=== PATIENT | female | born 1945 | race Caucasian/White ===

== ENCOUNTER 2016-05-13 11:15 | Inpatient (IN) | payer MEDICARE ==
[~2016-05-13] VITALS: Ht 162.6 cm; Wt 45.4 kg
[~2016-05-13 11:15] MED LIST: ASPI-605 PO; LEVO100T9 PO; OXYC-128 PO; PRAV40TA3 PO
[2016-05-13 12:00] VITALS: BP 105/60
[2016-05-13 12:02] VITALS: BP 105/60
[2016-05-13] MEDS ORDERED: MAG HYDROX/AL HYDROX/SIMETH 30 ML UDC PO PRN (13:30)
[2016-05-13] MEDS ORDERED: HYDROCODONE/APAP 5/325MG 1 EACH TABLET PO PRN (13:30)
[2016-05-13] MEDS ORDERED: ONDANSETRON HCL/PF 4 MG/2 ML VIAL IVP PRN (13:30)
[2016-05-13] MEDS ORDERED: MAGNESIUM HYDROXIDE 30 ML UDC PO PRN (13:30)
[2016-05-13] MEDS ORDERED: ZOLPIDEM TARTRATE 5 MG TABLET PO PRN (13:30)
[2016-05-13] MEDS ORDERED: Z GUARD REMEDY 2 OZ OINT TP PRN (13:30)
[2016-05-13] MEDS ORDERED: ACETAMINOPHEN 325 MG TABLET PO PRN (13:30)
[2016-05-13] MEDS ORDERED: IV SET PRIMARY PUMP SET 1 EA INFUS.SET MC ONE (14:02)
[2016-05-13 14:04] LABS: BASOPHILS % (AUTO) 0.4 % (0.0-2.0); DIFF TOTAL % 100 %; EOSINOPHILS % (AUTO) 0.5 % (0.0-6.0); HEMATOCRIT 31 % (33-45); HEMOGLOBIN 10.2 g/dL (11.5-14.8); LYMPHOCYTES # (AUTO) 1.7 /CMM (0.8-4.8); MEAN CORPUSCULAR HEMOGLOBIN 29 PG (26.0-33.0); MEAN CORPUSCULAR HGB CONC 33 g/dl (31.0-36.0); MEAN CORPUSCULAR VOLUME 87 fL (82-100); MONOCYTES % (AUTO) 11.1 % (2.0-12.0); NEUTROPHILS # (AUTO) 6.3 /CMM (1.8-8.9); PLATELET COUNT (AUTO) 556 /CMM (150-450); RED BLOOD CELL COUNT(AUTO) 3.55 MIL/uL (4.0-5.2); WHITE BLOOD COUNT (AUTO) 9.1 K/uL (4.3-11.0)
[2016-05-13] MEDS: IV NS 0.9% 1,000 ML IV PRN (14:08)
[2016-05-13 14:13] LABS: CALCIUM, SERUM 8.1 mg/dL (8.5-10.1); CREATININE 0.7 mg/dL (0.6-1.3); POTASSIUM 3.9 mmol/L (3.5-5.1)
[2016-05-13 16:00] VITALS: BP 115/64
[2016-05-13] MEDS: ACETAMINOPHEN 325 MG TABLET PO PRN (18:21)
[2016-05-13 20:00] VITALS: BP 122/73
[2016-05-13] MEDS ORDERED: HYDROCODONE/APAP 5/325MG 1 EACH TABLET ONE (22:08)
[2016-05-13] MEDS ORDERED: TRAZODONE 50 MG TABLET ONE (22:09)
[2016-05-13] MEDS ORDERED: QUETIAPINE FUMARATE 100 MG TABLET ONE (22:09)
[2016-05-13] MEDS: HYDROCODONE/APAP 5/325MG 1 EACH TABLET PO PRN (22:22)
[2016-05-13] MEDS: ATORVASTATIN 10 MG TABLET PO SCH (22:22)
[2016-05-13] MEDS: TRAZODONE 50 MG TABLET PO SCH (22:23)
[2016-05-13] MEDS: QUETIAPINE FUMARATE 100 MG TABLET PO SCH (22:23)
[2016-05-13] MEDS: Magnesium 1GM/D5W 100ML PREMIX 100 ML IV SCH ×2 (22:30→23:30)
[2016-05-13 23:44] LABS: ADD UA MICROSCOPIC NO; KETONES,URINE NEGATIVE (NEGATIVE); LEUKOCYTE ESTERASE ,URINE NEGATIVE (NEGATIVE)
[2016-05-14] VITALS: BP 124/81
[2016-05-14] MEDS ORDERED: Magnesium 1GM/D5W 100ML PREMIX 300 ML IV ONE (00:29)
[2016-05-14] MEDS ORDERED: SECONDARY IV SET 1 EA INFUS.SET MC ONE (00:33)
[2016-05-14] MEDS: Magnesium 1GM/D5W 100ML PREMIX 100 ML IV SCH ×2 (00:39→02:00)
[2016-05-14 04:00] VITALS: BP 131/71
[2016-05-14] MEDS: IV NS 0.9% 1,000 ML IV PRN (06:12)
[2016-05-14 06:54] VITALS: BP 134/74
[2016-05-14 07:34] LABS: BASOPHILS % (AUTO) 0.3 % (0.0-2.0); DIFF TOTAL % 100 %; EOSINOPHILS # (AUTO) 0.1 /CMM (0.0-0.7); EOSINOPHILS % (AUTO) 1.5 % (0.0-6.0); HEMATOCRIT 34 % (33-45); HEMOGLOBIN 11.2 g/dL (11.5-14.8); LYMPHOCYTES # (AUTO) 1.2 /CMM (0.8-4.8); LYMPHOCYTES % (AUTO) 18.6 % (20.0-44.0); MEAN CORPUSCULAR HEMOGLOBIN 29 PG (26.0-33.0); MEAN CORPUSCULAR HGB CONC 33 g/dl (31.0-36.0); MEAN CORPUSCULAR VOLUME 87 fL (82-100); MONOCYTES # (AUTO) 0.7 /CMM (0.1-1.30); MONOCYTES % (AUTO) 11.8 % (2.0-12.0); NEUTROPHILS # (AUTO) 4.2 /CMM (1.8-8.9); NEUTROPHILS % (AUTO) 67.8 % (43.0-81.0); PLATELET COUNT (AUTO) 561 /CMM (150-450); RED BLOOD CELL COUNT(AUTO) 3.91 MIL/uL (4.0-5.2); WHITE BLOOD COUNT (AUTO) 6.2 K/uL (4.3-11.0)
[2016-05-14 07:48] LABS: CALCIUM, SERUM 8.3 mg/dL (8.5-10.1); CREATININE 0.6 mg/dL (0.6-1.3); PHOSPHORUS 3.1 mg/dL (2.5-4.9); POTASSIUM 3.8 mmol/L (3.5-5.1)
[2016-05-14 07:56] LABS: THYROID STIMULATING HORMONE 4.738 uIU/mL (0.358-3.74)
[2016-05-14 07:59] LABS: THYROID STIMULATING HORMONE 4.607 uIU/mL (0.358-3.74)
[2016-05-14] MEDS: PANTOPRAZOLE 40 MG TABLET.DR PO SCH (08:33)
[2016-05-14] MEDS: LEVOTHYROXINE SODIUM 100 MCG TABLET PO SCH (08:33)
[2016-05-14] MEDS ORDERED: ASPIRIN EC 81 MG TABLET.DR PO SCH (09:00)
[2016-05-14] MEDS: HYDROCODONE/APAP 5/325MG 1 EACH TABLET PO PRN ×2 (09:08→13:54)
[2016-05-14] MEDS ORDERED: IV NS 0.9% 500 ML IV ONE (15:00)
[2016-05-14] MEDS ORDERED: IV SET PRIMARY PUMP SET 1 EA INFUS.SET MC ONE (15:01)
[2016-05-14] MEDS: AMOXICILLIN TRIHYDRATE 250 MG CAPSULE PO SCH (15:10)
[2016-05-14] MEDS: VENLAFAXINE XR 75 MG CAP.SR.24H PO SCH (15:10)
[2016-05-14] MEDS: oxyCODONE/APAP (5/325 MG) 1 UDTAB TABLET PO PRN ×2 (15:33→20:43)
[2016-05-14 16:00] VITALS: BP 114/70
[2016-05-14 20:00] VITALS: BP 125/67
[2016-05-14] MEDS: MUPIROCIN OINT 2% 22 GM TUBE SCH (21:00)
[2016-05-14] MEDS: TRAZODONE 50 MG TABLET PO SCH (22:33)
[2016-05-14] MEDS: ATORVASTATIN 10 MG TABLET PO SCH (22:33)
[2016-05-14] MEDS: QUETIAPINE FUMARATE 100 MG TABLET PO SCH (22:33)
[2016-05-15] MEDS: AMOXICILLIN TRIHYDRATE 250 MG CAPSULE PO SCH ×2 (03:36→14:41)
[2016-05-15] MEDS: IV NS 0.9% 1,000 ML IV PRN ×2 (06:46→15:28)
[2016-05-15] MEDS: oxyCODONE/APAP (5/325 MG) 1 UDTAB TABLET PO PRN ×5 (06:48→22:41)
[2016-05-15] MEDS: PANTOPRAZOLE 40 MG TABLET.DR PO SCH ×2 (06:48→16:55)
[2016-05-15] MEDS: LEVOTHYROXINE SODIUM 100 MCG TABLET PO SCH (06:49)
[2016-05-15 07:10] VITALS: BP_SYST 118; BP_SYST 128; BP_SYST 139; BP_DIAS 72; BP_DIAS 75
[2016-05-15 07:15] VITALS: BP 128/75
[2016-05-15 08:00] VITALS: BP 128/78
[2016-05-15] MEDS: VENLAFAXINE XR 75 MG CAP.SR.24H PO SCH (08:45)
[2016-05-15] MEDS: MUPIROCIN OINT 2% 22 GM TUBE SCH ×2 (10:23→21:39)
[2016-05-15] MEDS: SUCRALFATE 1 G TABLET PO SCH ×3 (12:14→21:40)
[2016-05-15] MEDS: CYANOCOBALAMIN 500 MCG TABLET PO SCH (12:14)
[2016-05-15 16:00] VITALS: BP 144/87
[2016-05-15 20:08] VITALS: BP 128/69
[2016-05-15] MEDS: ATORVASTATIN 10 MG TABLET PO SCH (21:40)
[2016-05-15] MEDS: QUETIAPINE FUMARATE 100 MG TABLET PO SCH (21:40)
[2016-05-15] MEDS: TRAZODONE 50 MG TABLET PO SCH (21:40)
[2016-05-15 22:22] VITALS: BP 125/69
[2016-05-16] MEDS: AMOXICILLIN TRIHYDRATE 250 MG CAPSULE PO SCH ×2 (03:13→14:03)
[2016-05-16] MEDS: IV NS 0.9% 1,000 ML IV PRN ×2 (06:52→16:14)
[2016-05-16] MEDS: oxyCODONE/APAP (5/325 MG) 1 UDTAB TABLET PO PRN ×4 (07:14→20:16)
[2016-05-16] MEDS: LEVOTHYROXINE SODIUM 100 MCG TABLET PO SCH (07:14)
[2016-05-16] MEDS: SUCRALFATE 1 G TABLET PO SCH ×4 (07:14→22:06)
[2016-05-16 08:00] VITALS: BP 103/72
[2016-05-16 08:33] LABS: IRON, SERUM 34 ug/dl (50-175); PERCENT SATURATION 9 % (14-33); TOTAL IRON BINDING CAPACITY 397 ug/dl (250-450)
[2016-05-16] MEDS: MUPIROCIN OINT 2% 22 GM TUBE SCH ×2 (09:32→22:05)
[2016-05-16] MEDS: CYANOCOBALAMIN 500 MCG TABLET PO SCH (09:32)
[2016-05-16] MEDS: PANTOPRAZOLE 40 MG TABLET.DR PO SCH ×2 (09:32→16:14)
[2016-05-16] MEDS: VENLAFAXINE XR 75 MG CAP.SR.24H PO SCH (09:32)
[2016-05-16] MEDS ORDERED: SECONDARY IV SET 1 EA INFUS.SET MC ONE (13:56)
[2016-05-16] MEDS ORDERED: SOD FERRIC GLUC 125 MG in IV NS 0.9% 100 ML IV SCH (14:00)
[2016-05-16 15:15] VITALS: BP 117/81
[2016-05-16] MEDS ORDERED: IV SET PRIMARY PUMP SET 1 EA INFUS.SET MC ONE (15:56)
[2016-05-16 16:00] VITALS: BP 112/81
[2016-05-16 20:00] VITALS: BP 124/79
[2016-05-16] MEDS: ATORVASTATIN 10 MG TABLET PO SCH (22:05)
[2016-05-16] MEDS: TRAZODONE 50 MG TABLET PO SCH (22:05)
[2016-05-16] MEDS: QUETIAPINE FUMARATE 100 MG TABLET PO SCH (22:05)
[2016-05-16] MEDS: ACETAMINOPHEN 325 MG TABLET PO PRN (22:23)
[2016-05-17] MEDS: oxyCODONE/APAP (5/325 MG) 1 UDTAB TABLET PO PRN ×3 (00:18→12:12)
[2016-05-17] MEDS: IV NS 0.9% 1,000 ML IV PRN (00:19)
[2016-05-17] MEDS: AMOXICILLIN TRIHYDRATE 250 MG CAPSULE PO SCH (03:26)
[2016-05-17 07:28] LABS: BASOPHILS % (AUTO) 0.6 % (0.0-2.0); DIFF TOTAL % 100 %; EOSINOPHILS # (AUTO) 0.1 /CMM (0.0-0.7); EOSINOPHILS % (AUTO) 1.5 % (0.0-6.0); HEMATOCRIT 34 % (33-45); HEMOGLOBIN 11.2 g/dL (11.5-14.8); LYMPHOCYTES # (AUTO) 1.7 /CMM (0.8-4.8); LYMPHOCYTES % (AUTO) 29.3 % (20.0-44.0); MEAN CORPUSCULAR HEMOGLOBIN 29 PG (26.0-33.0); MEAN CORPUSCULAR HGB CONC 33 g/dl (31.0-36.0); MEAN CORPUSCULAR VOLUME 88 fL (82-100); MONOCYTES # (AUTO) 0.6 /CMM (0.1-1.30); MONOCYTES % (AUTO) 10.5 % (2.0-12.0); NEUTROPHILS # (AUTO) 3.4 /CMM (1.8-8.9); NEUTROPHILS % (AUTO) 58.1 % (43.0-81.0); PLATELET COUNT (AUTO) 518 /CMM (150-450); WHITE BLOOD COUNT (AUTO) 5.8 K/uL (4.3-11.0)
[2016-05-17 08:00] VITALS: BP 91/64
[2016-05-17] MEDS: LEVOTHYROXINE SODIUM 100 MCG TABLET PO SCH (08:30)
[2016-05-17] MEDS: CYANOCOBALAMIN 500 MCG TABLET PO SCH (08:31)
[2016-05-17] MEDS: SUCRALFATE 1 G TABLET PO SCH ×2 (08:31→11:26)
[2016-05-17] MEDS: PANTOPRAZOLE 40 MG TABLET.DR PO SCH (08:31)
[2016-05-17] MEDS: VENLAFAXINE XR 75 MG CAP.SR.24H PO SCH (08:31)
[2016-05-17] MEDS: MUPIROCIN OINT 2% 22 GM TUBE SCH (09:39)
== END 2016-05-17 15:45 | disposition home or self-care (01) | DRG 74 ==
LOC: TELE1 11:47 → TELE 12:16 → MED 05-14 10:05
PROVIDERS: ADMIT Student in an Organized Health Care Education/Training Program; ATTEND Student in an Organized Health Care Education/Training Program
DX: G90.8 Other disorders of autonomic nervous system (principal); E44.1 Mild protein-calorie malnutrition; Z68.1 Body mass index [BMI] 19.9 or less, adult; H53.2 Diplopia; K29.70 Gastritis, unspecified, without bleeding; F32.9 Major depressive disorder, single episode, unspecified; E78.5 Hyperlipidemia, unspecified; D64.9 Anemia, unspecified; E03.9 Hypothyroidism, unspecified; Z86.73 Personal history of transient ischemic attack (TIA), and cerebral infarction without residual deficits; Z87.11 Personal history of peptic ulcer disease; K57.30 Diverticulosis of large intestine without perforation or abscess without bleeding; K04.7 Periapical abscess without sinus; Z90.49 Acquired absence of other specified parts of digestive tract; K25.9 Gastric ulcer, unspecified as acute or chronic, without hemorrhage or perforation
CPT/HCPCS: 36415; 80048-TC; 80061-TC; 81000-TC; 82272-TC; 82728-TC; 82746; 83540-TC; 83735-TC; 84100-TC; 84439-TC; 84443-TC; 84484-TC; 85025-TC; 85045-TC; 87081-TC; 92521; 97001-TC; 97003-TC; J2405; J2916; J3475; J7030; J7040

== ENCOUNTER 2017-05-06 22:56 | Inpatient (IN) | payer MEDICARE ==
[~2017-05-06] VITALS: Ht 162.6 cm; Wt 49.0 kg
--- NOTE | 2017-05-07 01:40 | NUR ---
TO BED 6 A 71 YO FEMALE PATIENT BIBSELF AND SAID, "I WANT SOMEWHERE TO BE; JUST LEFT THE USP; WANNA HURT MYSELF BUT DONT KNOW HOW." PATIENT IS AAOX3, VSS. NAD NOTED. SKIN WARM AND DRY. AMBULATORY WITH STEADY GAIT. SAFETY MEASURES OBSERVED. WILL CLOSELY MONITOR.
[2017-05-07 01:42] LABS: BASOPHILS % (AUTO) 0.4 % (0.0-2.0); EOSINOPHILS # (AUTO) 0.1 /CMM (0.0-0.7); EOSINOPHILS % (AUTO) 0.8 % (0.0-6.0); HEMATOCRIT 35 % (33-45); HEMOGLOBIN 11.8 g/dL (11.5-14.8); LYMPHOCYTES # (AUTO) 2.4 /CMM (0.8-4.8); LYMPHOCYTES % (AUTO) 26.4 % (20.0-44.0); MEAN CORPUSCULAR HEMOGLOBIN 33 PG (26.0-33.0); MEAN CORPUSCULAR HGB CONC 34 g/dl (31.0-36.0); MEAN CORPUSCULAR VOLUME 96 fL (82-100); MONOCYTES # (AUTO) 0.9 /CMM (0.1-1.30); MONOCYTES % (AUTO) 9.5 % (2.0-12.0); NEUTROPHILS # (AUTO) 5.7 /CMM (1.8-8.9); NEUTROPHILS % (AUTO) 62.9 % (43.0-81.0); PLATELET COUNT (AUTO) 410 /CMM (150-450); RDW COEFFICIENT OF VARIATION 15.7 (11.5-15.0); RED BLOOD CELL COUNT(AUTO) 3.62 MIL/uL (4.0-5.2)
[2017-05-07 01:43] LABS: APPEARANCE,URINE CLEAR (CLEAR); BILIRUBIN,URINE NEGATIVE (NEGATIVE); BLOOD, URINE TRACE-INTA Ery/uL (NEGATIVE); COLOR,URINE YELLOW (YELLOW); KETONES,URINE NEGATIVE (NEGATIVE); LEUKOCYTE ESTERASE ,URINE 3+ (NEGATIVE); NITRITE, URINE NEGATIVE (NEGATIVE); PROTEIN,URINE NEGATIVE (NEGATIVE); UGLUCOSE NEGATIVE (NEGATIVE); UROBILINOGEN,URINE 0.2 EU/dL (0.2)
--- NOTE | 2017-05-07 01:47 | NUR ---
dr dover at bedside talking to the patient.
[2017-05-07 01:48] LABS: BACTERIA,URINE Moderate /HPF (None Seen); SQUAMOUS EPITHELIAL CELL,UR Few /HPF (None Seen)
[2017-05-07 01:51] LABS: CALCIUM, SERUM 8.9 mg/dL (8.5-10.1); CARBON DIOXIDE 27 mmol/L (21-32); CHLORIDE 110 mmol/L (98-107); CREATININE 0.7 mg/dL (0.6-1.3); GLUCOSE 101 mg/dL (74-106); POTASSIUM 3.3 mmol/L (3.5-5.1); SODIUM SERUM 148 mmol/L (136-145); UREA NITROGEN, BLOOD 10 mg/dL (7-18)
[2017-05-07 01:57] LABS: ACETAMINOPHEN 3 ug/ml (10-30); ALANINE AMINOTRANSFERASE 17 U/L (12-78); ALBUMIN 3.3 g/dL (3.4-5.0); ALCOHOL, BLOOD < 3 mg/dL (0-0); ALKALINE PHOSPHATASE 130 U/L (46-116); ASPARTATE AMINOTRANSFERASE 13 U/L (15-37); BILIRUBIN,DIRECT 0.1 mg/dL (0.0-0.2); BILIRUBIN,TOTAL 0.3 mg/dL (0.2-1.0); SALICYLATE 4.6 mg/dL (2.8-20.0); TOTAL PROTEIN, SERUM 6.8 g/dL (6.4-8.2)
[2017-05-07] MEDS ORDERED: POTASSIUM CHLORIDE 20 MEQ TAB.PRT.SR PO ONE ×2 (03:00→03:04)
[2017-05-07] MEDS ORDERED: NITROFURANTOIN/NITROFURAN MAC 100 MG CAPSULE PO ONE (03:00)
[2017-05-07] MEDS ORDERED: NITROFURANTOIN/NITROFURAN MAC 100 MG CAPSULE ONE (03:04)
--- NOTE | 2017-05-07 03:10 | NUR ---
MEDICATED PATIENT ORDERED BY DR MAN.
[2017-05-07] MEDS ORDERED: TRAZ-147 PO (03:40)
[2017-05-07] MEDS ORDERED: LEVO125T8 PO (03:40)
[2017-05-07] MEDS ORDERED: VENL150C2 PO (03:40)
[2017-05-07] MEDS ORDERED: QUET100T PO (03:40)
[2017-05-07] MEDS ORDERED: OXYC-133 PO (03:40)
[2017-05-07] MEDS ORDERED: ONDA4TAB11 PO (03:57)
[2017-05-07] MEDS ORDERED: MAGNESIUM HYDROXIDE 30 ML UDC PO PRN (04:00)
[2017-05-07] MEDS ORDERED: MAG HYDROX/AL HYDROX/SIMETH 30 ML UDC PO PRN (04:00)
[2017-05-07 04:22] VITALS: BP 105/67
--- NOTE | 2017-05-07 04:57 | NUR ---
ADMISSION NOTES ADMITTED THIS 71 Y/O FEMALE PATIENT ADMIT FROM [facility] ER/ , PT. ADMITTED VOLUNTARY STATUS FOR DEPRESSION ,SI, PT. STATUS I FEEL DEPRESSED AND I HAVE SUCIDIAL THOUGHTS BUT NOT AT THIS TIME AND I DON'T HAVE PLAN , UPON FACE TO FACE ASSESSMENT PATIENT IS A&O X3 DEPRESSED FLAT AFFECT, EASILY AGITAED AND ANXIOUS PRE OCCUPIED WITH HIS OWN THOUGHTS , PT. IS POOR HISTORIAN, POOR INSIGHT ,POOR JUDGEMENT , POOR HYGINE V/S WNL, NO ACUTE DISTRESS NOTED, HX OF , DEPRESSION ,PTSD, MUSCLE WEAKNESS CHRONIC BACK PAIN , HYPOTHYRODISM ,DYSLIPIDEMIA, MD AWARE AND NOTIFIED OF THE ADMISSION, SKIN ASSESSMENT DONE . PICTURE TAKEN AND PLACED IN THE CHART, ENCOURAGED PT. VERBALIZED ANY FEELING CONCERN TO STAFF, ORIENT TO UNIT POLICY, WILL CONTINUE TO MONITOR FOR Q15 SAFETY AND BEHAVIOR.
--- NOTE | 2017-05-07 05:10 | NUR ---
GPS RN NOTES NOTIFIED DR. MCGOWAN REGARDING NEW ADMISSION MED RECON , STATUS I WILL DO IT.
[2017-05-07] MEDS ORDERED: Z GUARD REMEDY 2 OZ OINT TP PRN (05:30)
--- NOTE | 2017-05-07 06:27 | NUR ---
DR. HONG MADE AWARE OF THE ADMISSION AND GAVE ORDERS.
[2017-05-07 08:00] VITALS: BP 110/69
[2017-05-07] MEDS: Z GUARD REMEDY 2 OZ OINT TP SCH (10:39)
[2017-05-07] MEDS: clonazePAM 0.5 MG TABLET PO PRN ×2 (12:37→16:59)
--- NOTE | 2017-05-07 12:38 | NUR ---
RN-CO: Klonopin 0.5 given for anxiety.
--- NOTE | 2017-05-07 13:14 | NUR ---
RN-CO: Notified Billy Cm NP to reconcile home medications. Awaiting to call back.
--- NOTE | 2017-05-07 14:35 | NUR ---
RN-CO: Clarified with Dr Doherty if it's ok to give Restoril (pt has allergy to red dye). ok'd it.
[2017-05-07] MEDS ORDERED: TEMAZEPAM 7.5 MG CAPSULE PO PRN (15:00)
[2017-05-07 16:00] VITALS: BP 125/64
[2017-05-07] MEDS: VENLAFAXINE XR 75 MG CAP.SR.24H PO SCH (16:19)
[2017-05-07] MEDS: ACETAMINOPHEN 325 MG TABLET PO PRN (16:38)
--- NOTE | 2017-05-07 17:00 | NUR ---
rn-co: patient was given klonopin 0.5 mg po patient stated " I think I will have a nervous breakdown now."
[2017-05-07] MEDS: oxyCODONE/APAP (5/325 MG) 1 UDTAB TABLET PO PRN (18:28)
[2017-05-07 20:00] VITALS: BP 116/56
[2017-05-07] MEDS: CEPHALEXIN MONOHYDRATE 500 MG CAPSULE PO SCH (21:00)
[2017-05-07] MEDS: QUETIAPINE FUMARATE 100 MG TABLET PO SCH (22:18)
[2017-05-07] MEDS: TRAZODONE 50 MG TABLET PO SCH (22:19)
--- NOTE | 2017-05-08 00:10 | NUR ---
PATIENT C/O INABILITY TO SLEEP,RESTORIL 7.5MG.PO GIVEN ORDERED WITH HELP.
[2017-05-08 07:20] LABS: CHOLESTEROL 157 mg/dL (<200); HDL CHOLESTEROL 58 mg/dL (40-60); LDL 83 mg/dL (0-99); TRIGLYCERIDES 96 mg/dL (30-150)
[2017-05-08 07:22] LABS: ALANINE AMINOTRANSFERASE 12 U/L (12-78); ALBUMIN 2.6 g/dL (3.4-5.0); ALKALINE PHOSPHATASE 83 U/L (46-116); ASPARTATE AMINOTRANSFERASE 13 U/L (15-37); BILIRUBIN,TOTAL 0.3 mg/dL (0.2-1.0); CALCIUM, SERUM 8.4 mg/dL (8.5-10.1); CARBON DIOXIDE 28 mmol/L (21-32); CHLORIDE 108 mmol/L (98-107); CREATININE 0.5 mg/dL (0.6-1.3); GLUCOSE 88 mg/dL (74-106); POTASSIUM 3.7 mmol/L (3.5-5.1); SODIUM SERUM 142 mmol/L (136-145); TOTAL PROTEIN, SERUM 5.7 g/dL (6.4-8.2); UREA NITROGEN, BLOOD 9 mg/dL (7-18)
[2017-05-08 08:23] VITALS: BP 128/76
[2017-05-08] MEDS: CEPHALEXIN MONOHYDRATE 500 MG CAPSULE PO SCH ×2 (09:12→21:44)
[2017-05-08] MEDS: LEVOTHYROXINE SODIUM 125 MCG TABLET PO SCH (09:12)
[2017-05-08] MEDS: ATORVASTATIN 10 MG TABLET PO SCH (09:12)
[2017-05-08] MEDS: VENLAFAXINE XR 75 MG CAP.SR.24H PO SCH (09:12)
[2017-05-08] MEDS: oxyCODONE/APAP (5/325 MG) 1 UDTAB TABLET PO PRN ×3 (09:20→21:51)
[2017-05-08] MEDS: Z GUARD REMEDY 2 OZ OINT TP SCH (09:22)
--- NOTE | 2017-05-08 13:38 | NUR ---
Initial Discharge Plan: Pt reports being homeless. Pt reports having lost her housing in [place] on 05/04/17. Pt reports it being "illegal" housing. Pts main priority is to find housing with her cat, whom she boarded on Thursday. Pt would like to share a home/apt with another senior upon discharge. SW will assist pt in locating an affordable board and care and or assisted living. SW will follow up to ensure pt is safely and properly discharged.
--- NOTE | 2017-05-08 15:30 | NUR ---
RN NOTE: PATIENT STATED SHE HAS 8-9/10 PAIN. GAVE PERCOCET PRN TO PATIENT.
[2017-05-08 16:02] VITALS: BP 117/67
--- NOTE | 2017-05-08 19:30 | NUR ---
GPS RN NOTE, RECEIVED PATIENT AWAKE AND IN BED, NO S/S OR COMPLAINTS OF PAIN AT THIS TIME. PATIENT IS DISPLAYING NO S/S OF APPARENT DISTRESS AT THIS TIME. PATIENT BREATHING IS UNLABORED WITH EQUAL RISE AND FALL OF THE CHEST. PATIENT IS ALERT AND ORIENTED X 3 ON ROOM AIR WITH A SPO2 OF 98%. PATIENT IS MEDICATION COMPLIANT, DISORGANIZED, ANXIOUS, PARANOID, AND NEEDS REORIENTATION. PATIENT DENIES SUICIDE IDEATIONS AND HOMICIDAL IDEATIONS AT THIS TIME. PATIENT ASSISTED WITH TURNING AND REPOSITIONING Q2HR AND PRN FOR COMFORT AND CIRCULATION. PATIENT HAS NO NEEDS AT THIS TIME. PATIENT EDUCATED ON THE USE OF THE CALL WOLF. PATIENT SIDE RAILS ARE UP X 2, BED IS LOCKED AND LOW, AND I WILL CONTINUE TO MONITOR THIS PATIENT Q 15 MIN WITH THE HELP OF STAFF.
[2017-05-08] MEDS: ACETAMINOPHEN 325 MG TABLET PO PRN (19:53)
--- NOTE | 2017-05-08 19:53 | NUR ---
GPS RN NOTE, PATIENT HAS A COMPLAINT OF LOWER BACK PAIN AT 7 OUT 10 ON THE PAIN SCALE AND IS REQUESTING TYLENOL AT THIS TIME. PATIENT VITAL SIGNS ARE STABLE. GAVE TYLENOL 650MG PO Q6HR PRN ORDERED. WILL REASSESS FOR PAIN AND I WILL CONTINUE TO MONITOR THIS PATIENT WITH THE HELP OF STAFF.
[2017-05-08 20:00] VITALS: BP 112/77
[2017-05-08] MEDS: TRAZODONE 50 MG TABLET PO SCH (21:45)
[2017-05-08] MEDS: QUETIAPINE FUMARATE 100 MG TABLET PO SCH (21:45)
--- NOTE | 2017-05-08 21:45 | NUR ---
GPS RN NOTE, PATIENT REFUSED TO TAKE TRAZODONE 200 MG PO HS AND SEROQUEL 100MG PO HS. OFFERED TRAZODONE AND SEROQUEL THREE TIMES AND STILL PATIENT REFUSED STATING, " I JUST WANT MY PERCOCET ". EDUCATED THIS PATIENT ON THE RISKS AND BENEFITS OF TAKING AND REFUSING AFOREMENTIONED MEDICATION. WILL CONTINUE TO MONITOR THIS PATIENT.
--- NOTE | 2017-05-08 21:51 | NUR ---
GPS RN NOTE, PATIENT HAS A COMPLAINT OF LOWER BACK PAIN AT 6 OUT 10 ON THE PAIN SCALE AND IS REQUESTING PERCOCET AT THIS TIME. PATIENT VITAL SIGNS ARE STABLE. GAVE PERCOCET 5-325 PO Q6HR PRN ORDERED. WILL REASSESS FOR PAIN AND I WILL CONTINUE TO MONITOR THIS PATIENT WITH THE HELP OF STAFF.
[2017-05-09] MEDS: oxyCODONE/APAP (5/325 MG) 1 UDTAB TABLET PO PRN ×3 (03:52→16:37)
[2017-05-09] MEDS: ACETAMINOPHEN 325 MG TABLET PO PRN (07:31)
--- NOTE | 2017-05-09 07:32 | NUR ---
RN NOTE: PATIENT REPORTS PAIN OF 8/10. GIVING ACETAMINOPHEN 650 MG.
[2017-05-09 08:00] VITALS: BP 100/51
[2017-05-09] MEDS: LEVOTHYROXINE SODIUM 125 MCG TABLET PO SCH (08:46)
[2017-05-09] MEDS: VENLAFAXINE XR 75 MG CAP.SR.24H PO SCH (08:46)
[2017-05-09] MEDS: ATORVASTATIN 10 MG TABLET PO SCH (08:46)
[2017-05-09] MEDS: CEPHALEXIN MONOHYDRATE 500 MG CAPSULE PO SCH ×2 (08:46→21:04)
[2017-05-09] MEDS: Z GUARD REMEDY 2 OZ OINT TP SCH (08:47)
[2017-05-09] MEDS: ONDANSETRON 4 MG TAB.RAPDIS PO PRN (11:57)
--- NOTE | 2017-05-09 11:57 | NUR ---
PATIENT REPORTS NAUSEA. ZOFRAN 4MG GIVEN PRN.
[2017-05-09 16:00] VITALS: BP 92/57
--- NOTE | 2017-05-09 16:37 | NUR ---
RN NOTE: PATIENT STATES SHE HAS 8-9/10 PAIN. PERCOCET GIVEN.
[2017-05-09 20:00] VITALS: BP 119/60
[2017-05-09] MEDS: TRAZODONE 50 MG TABLET PO SCH (21:04)
[2017-05-09] MEDS: QUETIAPINE FUMARATE 100 MG TABLET PO SCH (21:04)
[2017-05-10] MEDS: oxyCODONE/APAP (5/325 MG) 1 UDTAB TABLET PO PRN ×3 (07:34→19:53)
--- NOTE | 2017-05-10 07:35 | NUR ---
RN NOTE: PATIENT STATES SHE IS IN 11/30. GIVEN PERCOCET PRN.
[2017-05-10 07:59] VITALS: BP 138/70
[2017-05-10] MEDS: ATORVASTATIN 10 MG TABLET PO SCH (08:58)
[2017-05-10] MEDS: CEPHALEXIN MONOHYDRATE 500 MG CAPSULE PO SCH ×2 (08:58→20:49)
[2017-05-10] MEDS: LEVOTHYROXINE SODIUM 125 MCG TABLET PO SCH (08:58)
[2017-05-10] MEDS: VENLAFAXINE XR 75 MG CAP.SR.24H PO SCH (08:59)
[2017-05-10] MEDS: Z GUARD REMEDY 2 OZ OINT TP SCH (09:00)
[2017-05-10] MEDS: ACETAMINOPHEN 325 MG TABLET PO PRN (10:30)
--- NOTE | 2017-05-10 10:31 | NUR ---
PATIENT STATES SHE HAS 7/10 PAIN. ACETAMINOPHEN 650 MG GIVEN.
--- NOTE | 2017-05-10 13:35 | NUR ---
RN NOTE: PATIENT STATES IN PAIN 11/30. PERCOCET 5 MG GIVEN PRN.
[2017-05-10 15:33] VITALS: BP 99/53
[2017-05-10 19:46] VITALS: BP 104/58
--- NOTE | 2017-05-10 19:53 | NUR ---
GPS RN NOTES: PATIENT C/O LOWER BACK PAIN. PATIENT RATES 8/10, PATIENT IS REQUESTING FOR PERCOCET. VITAL SIGNS ARE STABLE. PERCOCET 5/325MG PO GIVEN PRN ORDER, WILL CONTINUE AND ASSESS FOR PAIN.
[2017-05-10] MEDS: QUETIAPINE FUMARATE 100 MG TABLET PO SCH (21:25)
[2017-05-10] MEDS: TRAZODONE 50 MG TABLET PO SCH (21:25)
[2017-05-11] MEDS: oxyCODONE/APAP (5/325 MG) 1 UDTAB TABLET PO PRN ×3 (07:05→19:43)
[2017-05-11 08:00] VITALS: BP 93/55
[2017-05-11] MEDS: ATORVASTATIN 10 MG TABLET PO SCH (09:10)
[2017-05-11] MEDS: Z GUARD REMEDY 2 OZ OINT TP SCH (09:10)
[2017-05-11] MEDS: CEPHALEXIN MONOHYDRATE 500 MG CAPSULE PO SCH ×2 (09:10→21:22)
[2017-05-11] MEDS: VENLAFAXINE XR 75 MG CAP.SR.24H PO SCH (09:10)
[2017-05-11] MEDS: LEVOTHYROXINE SODIUM 125 MCG TABLET PO SCH (09:10)
[2017-05-11 16:07] VITALS: BP 116/75
[2017-05-11 20:10] VITALS: BP 111/60
[2017-05-11] MEDS: QUETIAPINE FUMARATE 100 MG TABLET PO SCH (21:22)
[2017-05-11] MEDS: MIRTAZAPINE 15 MG TABLET PO SCH (21:23)
[2017-05-11] MEDS: TRAZODONE 50 MG TABLET PO SCH (21:23)
[2017-05-11] MEDS ORDERED: MIRTAZAPINE 15 MG TABLET PO SCH (22:00)
[2017-05-12] MEDS: oxyCODONE/APAP (5/325 MG) 1 UDTAB TABLET PO PRN ×4 (01:41→19:38)
--- NOTE | 2017-05-12 07:44 | NUR ---
PATIENT REPORTS LOWER BACK PAIN, POSSIBLE 12/30. VITALS STABLE. PERCOCET GIVEN .
[2017-05-12 08:00] VITALS: BP 100/58
[2017-05-12] MEDS: VENLAFAXINE XR 75 MG CAP.SR.24H PO SCH (09:02)
[2017-05-12] MEDS: ATORVASTATIN 10 MG TABLET PO SCH (09:03)
[2017-05-12] MEDS: Z GUARD REMEDY 2 OZ OINT TP SCH (09:03)
[2017-05-12] MEDS: CEPHALEXIN MONOHYDRATE 500 MG CAPSULE PO SCH (09:03)
[2017-05-12] MEDS: LEVOTHYROXINE SODIUM 125 MCG TABLET PO SCH (09:03)
--- NOTE | 2017-05-12 13:37 | NUR ---
RN NOTE: PATIENT STATES SHE HAS 8/10 PAIN. PERCOCET PRN GIVEN.
[2017-05-12 16:00] VITALS: BP 113/59
--- NOTE | 2017-05-12 19:30 | NUR ---
GPS RN NOTE, RECEIVED PATIENT AWAKE AND IN BED, PATIENT HAS A COMPLAINT OF LOWER BACK PAIN AT A 7 OUT 10 ON THE PAIN SCALE. PATIENT IS TAKING ORAL PAIN MEDICATION FOR THIS PAIN. PATIENT IS DISPLAYING NO S/S OF APPARENT DISTRESS AT THIS TIME. PATIENT BREATHING IS UNLABORED WITH EQUAL RISE AND FALL OF THE CHEST. PATIENT IS ALERT AND ORIENTED X 3 ON ROOM AIR WITH A SPO2 OF 98%. PATIENT IS MEDICATION COMPLIANT, DISORGANIZED, ANXIOUS, PARANOID, AND NEEDS REORIENTATION. PATIENT DENIES SUICIDE IDEATIONS AND HOMICIDAL IDEATIONS AT THIS TIME. PATIENT ASSISTED WITH TURNING AND REPOSITIONING Q2HR AND PRN FOR COMFORT AND CIRCULATION. PATIENT HAS NO NEEDS AT THIS TIME. PATIENT EDUCATED ON THE USE OF THE CALL WOLF. PATIENT SIDE RAILS ARE UP X 2, BED IS LOCKED AND LOW, AND I WILL CONTINUE TO MONITOR THIS PATIENT Q 15 MIN WITH THE HELP OF STAFF.
[2017-05-12 20:02] VITALS: BP 113/59
[2017-05-12] MEDS: QUETIAPINE FUMARATE 100 MG TABLET PO SCH (21:18)
[2017-05-12] MEDS: TRAZODONE 50 MG TABLET PO SCH (21:18)
[2017-05-12] MEDS: MIRTAZAPINE 15 MG TABLET PO SCH (21:19)
[2017-05-13] MEDS: oxyCODONE/APAP (5/325 MG) 1 UDTAB TABLET PO PRN ×3 (07:32→19:49)
--- NOTE | 2017-05-13 07:47 | NUR ---
RN NOTE: PATIENT STATES SHE HAS 8/10 PAIN. PERCOCET PRN GIVEN .
[2017-05-13 08:18] VITALS: BP 132/69
[2017-05-13] MEDS: LEVOTHYROXINE SODIUM 125 MCG TABLET PO SCH (08:23)
[2017-05-13] MEDS: ATORVASTATIN 10 MG TABLET PO SCH (08:23)
[2017-05-13] MEDS: VENLAFAXINE XR 75 MG CAP.SR.24H PO SCH (08:23)
[2017-05-13] MEDS: BOOST PLUS FOOD-VANILLA 237 ML BOX PO SCH ×3 (08:30→17:16)
[2017-05-13] MEDS: Z GUARD REMEDY 2 OZ OINT TP SCH (08:30)
--- NOTE | 2017-05-13 10:13 | NUR ---
Discharge Planning: SW spoke to pt this morning for discharge planning purposes. SW discussed placement options with pt once she is ready and stable to discharge. Pt was in agreement about looking into a SNF for a short time. Per pts request, inquiries (face sheet, medical H&P, P&P, and medication list) were faxed to [facility] fax # , [facility] fax # and [facility] fax # .
[2017-05-13] MEDS: ACETAMINOPHEN 325 MG TABLET PO PRN (10:19)
--- NOTE | 2017-05-13 10:19 | NUR ---
RN NOTE: PATIENT STATES SHE HAS 6/10 PAIN. ACETAMINOPHEN 650 GIVEN. PRN
--- NOTE | 2017-05-13 10:28 | NUR ---
Discharge Planning: DARRION spoke to Madai from [facility] for discharge planning purposes. DARRION gathered that pts inquiry would be reviewed before decision was made. DARRION provided Madai contact cell # for communication purposes. DARRION will follow up to ensure pt is safely and adequately placed.
--- NOTE | 2017-05-13 11:23 | NUR ---
PATIENT STATES SHE HAS NAUSEA. ZOFRAN GIVEN.
[2017-05-13] MEDS: ONDANSETRON 4 MG TAB.RAPDIS PO PRN (11:25)
--- NOTE | 2017-05-13 11:37 | NUR ---
Discharge Planning; SW received notification from Madai from [facility] stating that pt could not be admitted to their facility per DON's decision (i.e. pt "causes a lot of trouble and called DHS on us for no reason and was instigating with other residents"). SW will follow up with other facilities in order to find placement for pt once she is ready to be discharged.
--- NOTE | 2017-05-13 13:37 | NUR ---
RN NOTES: PATIENT STATES 8/10 PAIN. PERCOCET PRN GIVEN.
[2017-05-13 16:33] VITALS: BP 100/61
[2017-05-13 20:32] VITALS: BP 110/69
[2017-05-13] MEDS: TRAZODONE 50 MG TABLET PO SCH (21:06)
[2017-05-13] MEDS: MIRTAZAPINE 15 MG TABLET PO SCH (21:06)
[2017-05-13] MEDS: QUETIAPINE FUMARATE 100 MG TABLET PO SCH (21:06)
[2017-05-14 07:45] VITALS: BP 92/55
[2017-05-14] MEDS: VENLAFAXINE XR 75 MG CAP.SR.24H PO SCH (08:14)
[2017-05-14] MEDS: ATORVASTATIN 10 MG TABLET PO SCH (08:14)
[2017-05-14] MEDS: LEVOTHYROXINE SODIUM 125 MCG TABLET PO SCH (08:14)
[2017-05-14] MEDS: oxyCODONE/APAP (5/325 MG) 1 UDTAB TABLET PO PRN ×3 (08:14→21:09)
[2017-05-14] MEDS: Z GUARD REMEDY 2 OZ OINT TP SCH (08:16)
[2017-05-14] MEDS: BOOST PLUS FOOD-VANILLA 237 ML BOX PO SCH ×3 (09:07→17:26)
--- NOTE | 2017-05-14 14:28 | NUR ---
GPS/RN PATIENT REPORTS 9/10 BACK PAIN, ADMINISTERED PERCOCET 5/325 PER PATIENT REQUEST, WILL CONTINUE TO MONITOR.
[2017-05-14 16:00] VITALS: BP 107/72
[2017-05-14 20:00] VITALS: BP 97/60
[2017-05-14] MEDS ORDERED: QUETIAPINE FUMARATE 100 MG TABLET PO SCH (22:00)
[2017-05-14] MEDS: TRAZODONE 50 MG TABLET PO SCH (22:10)
[2017-05-14] MEDS: MIRTAZAPINE 15 MG TABLET PO SCH (22:10)
[2017-05-15] MEDS: VENLAFAXINE XR 75 MG CAP.SR.24H PO SCH (07:54)
[2017-05-15] MEDS: ATORVASTATIN 10 MG TABLET PO SCH (07:54)
[2017-05-15] MEDS: LEVOTHYROXINE SODIUM 125 MCG TABLET PO SCH (07:54)
[2017-05-15] MEDS: oxyCODONE/APAP (5/325 MG) 1 UDTAB TABLET PO PRN (07:55)
[2017-05-15 08:00] VITALS: BP 101/58
--- NOTE | 2017-05-15 08:03 | NUR ---
DR. FINCH GAVE AN ORDER TO D/C PT. TO [facility] AND TO CONTINUE SAME MEDS AND TO FOLLOW UP WITH PSYCH AND MEDICAL DOCTORS.
[2017-05-15] MEDS: Z GUARD REMEDY 2 OZ OINT TP SCH (09:00)
[2017-05-15] MEDS: BOOST PLUS FOOD-VANILLA 237 ML BOX PO SCH ×2 (10:24→13:28)
[2017-05-15] MEDS: ONDANSETRON 4 MG TAB.RAPDIS PO PRN (11:44)
--- NOTE | 2017-05-15 15:15 | NUR ---
GPS/RN PT D/C TO [facility] NO SI OR HI AT THE TIME OF D/C PRESCRIPTIONS AND EXIT CARE INSTRUCTIONS GIVEN AND UNDERSTOOD. PROPERTY RETURNED. VSS. PT IS AMBULATORY. PT REFUSED PICTURES ON D/C. REPORT GIVEN TO DUC MORA AT [facility].
[2017-05-15 16:09] VITALS: BP 114/73
--- NOTE | 2017-05-15 18:43 | NUR ---
Discharge Note: Patient will be discharged to [facility], [address] [place] [address]. [place] [address]; via ambulance (trip # [id number]) at 2:00 pm. Pt and pts son Eugenio (telephone # in [place] [phone]) have been notified and are in agreement. Pts attending physicians at the facility will be: Psychiatrist: Dr. Pedraza, [facility]. [address] [place]. [id number]; and Mobile Development Manager: Dr. Rudolph, [facility] [address] [address]; .
== END 2017-05-15 15:15 | DRG 885 ==
LOC: ER 22:58 → GPS 05-07 03:04
PROVIDERS: ADMIT Psychiatry & Neurology Psychiatry; ATTEND Psychiatry & Neurology Psychiatry
DX: F25.0 Schizoaffective disorder, bipolar type (principal); R45.851 Suicidal ideations; N39.0 Urinary tract infection, site not specified; F29 Unspecified psychosis not due to a substance or known physiological condition; B96.89 Other specified bacterial agents as the cause of diseases classified elsewhere; F43.10 Post-traumatic stress disorder, unspecified; Z90.710 Acquired absence of both cervix and uterus; Z90.49 Acquired absence of other specified parts of digestive tract; Z85.820 Personal history of malignant melanoma of skin; Z79.82 Long term (current) use of aspirin; Z79.899 Other long term (current) drug therapy; Z59.0 Homelessness; Z91.410 Personal history of adult physical and sexual abuse; E78.5 Hyperlipidemia, unspecified; E03.9 Hypothyroidism, unspecified; G89.29 Other chronic pain; F41.9 Anxiety disorder, unspecified; Z88.1 Allergy status to other antibiotic agents; Z91.041 Radiographic dye allergy status; Z88.5 Allergy status to narcotic agent; Z88.8 Allergy status to other drugs, medicaments and biological substances; Z91.018 Allergy to other foods; Z91.048 Other nonmedicinal substance allergy status; Z98.890 Other specified postprocedural states; F12.90 Cannabis use, unspecified, uncomplicated
CPT/HCPCS: 36415; 80048-TC; 80053-TC; 80061-TC; 80076-TC; 80305; 81000-TC; 85025-TC; 87081-TC; 87086-TC; A4606; G0480; Q0162; Z7610

== ENCOUNTER 2017-06-04 00:40 | Inpatient (IN) | payer MEDICARE ==
[~2017-06-04] VITALS: Ht 162.6 cm; Wt 50.8 kg
[~2017-06-04 00:40] MED LIST changes: -ASPI-605 PO; -LEVO100T9 PO; +LEVO125T8 PO; +ONDA4TAB11 PO; -OXYC-128 PO; +OXYC-133 PO
[2017-06-04 01:20] LABS: APPEARANCE,URINE CLEAR (CLEAR); BILIRUBIN,URINE NEGATIVE (NEGATIVE); BLOOD, URINE 1+ Ery/uL (NEGATIVE); COLOR,URINE YELLOW (YELLOW); KETONES,URINE NEGATIVE (NEGATIVE); LEUKOCYTE ESTERASE ,URINE TRACE (NEGATIVE); NITRITE, URINE NEGATIVE (NEGATIVE); PROTEIN,URINE NEGATIVE (NEGATIVE); UGLUCOSE NEGATIVE (NEGATIVE); UROBILINOGEN,URINE 0.2 EU/dL (0.2)
[2017-06-04 01:23] LABS: BASOPHILS % (AUTO) 0.1 % (0.0-2.0); HEMATOCRIT 33 % (33-45); HEMOGLOBIN 10.9 g/dL (11.5-14.8); LYMPHOCYTES # (AUTO) 0.9 /CMM (0.8-4.8); LYMPHOCYTES % (AUTO) 6.1 % (20.0-44.0); MEAN CORPUSCULAR HEMOGLOBIN 32 PG (26.0-33.0); MEAN CORPUSCULAR HGB CONC 33 g/dl (31.0-36.0); MEAN CORPUSCULAR VOLUME 96 fL (82-100); MONOCYTES # (AUTO) 1.1 /CMM (0.1-1.30); MONOCYTES % (AUTO) 7.5 % (2.0-12.0); NEUTROPHILS # (AUTO) 12.5 /CMM (1.8-8.9); NEUTROPHILS % (AUTO) 86.3 % (43.0-81.0); PLATELET COUNT (AUTO) 366 /CMM (150-450); RDW COEFFICIENT OF VARIATION 15.6 (11.5-15.0); RED BLOOD CELL COUNT(AUTO) 3.42 MIL/uL (4.0-5.2); WHITE BLOOD COUNT (AUTO) 14.5 K/uL (4.3-11.0)
[2017-06-04 01:26] LABS: BACTERIA,URINE Few /HPF (None Seen); SQUAMOUS EPITHELIAL CELL,UR Few /HPF (None Seen)
[2017-06-04 01:27] LABS: CALCIUM, SERUM 8.6 mg/dL (8.5-10.1); CARBON DIOXIDE 21 mmol/L (21-32); CHLORIDE 95 mmol/L (98-107); CREATININE 0.7 mg/dL (0.6-1.3); GLUCOSE 89 mg/dL (74-106); POTASSIUM 3.7 mmol/L (3.5-5.1); SODIUM SERUM 131 mmol/L (136-145); UREA NITROGEN, BLOOD 15 mg/dL (7-18)
[2017-06-04 01:34] LABS: ACETAMINOPHEN 4 ug/ml (10-30); ALANINE AMINOTRANSFERASE 20 U/L (12-78); ALBUMIN 3.4 g/dL (3.4-5.0); ALCOHOL, BLOOD < 3 mg/dL (0-0); ALKALINE PHOSPHATASE 105 U/L (46-116); ASPARTATE AMINOTRANSFERASE 18 U/L (15-37); BILIRUBIN,DIRECT 0.1 mg/dL (0.0-0.2); BILIRUBIN,TOTAL 0.3 mg/dL (0.2-1.0); SALICYLATE 2.4 mg/dL (2.8-20.0)
[2017-06-04 03:35] VITALS: BP 115/77
[2017-06-04] MEDS ORDERED: MAGNESIUM HYDROXIDE 30 ML UDC PO PRN (04:00)
[2017-06-04] MEDS ORDERED: MAG HYDROX/AL HYDROX/SIMETH 30 ML UDC PO PRN (04:00)
[2017-06-04] MEDS ORDERED: ACETAMINOPHEN 325 MG TABLET PO PRN (04:00)
[2017-06-04 07:12] LABS: CREATININE 0.6 mg/dL (0.6-1.3)
[2017-06-04 08:00] VITALS: BP 110/49
[2017-06-04] MEDS ORDERED: ONDANSETRON 4 MG TAB.RAPDIS PO PRN (11:30)
[2017-06-04] MEDS: oxyCODONE/APAP (5/325 MG) 1 UDTAB TABLET PO PRN ×2 (12:17→20:00)
[2017-06-04 16:00] VITALS: BP 115/74
[2017-06-04 20:00] VITALS: BP 118/73
[2017-06-04] MEDS: QUETIAPINE FUMARATE 100 MG TABLET PO SCH (21:48)
[2017-06-04] MEDS: TRAZODONE 50 MG TABLET PO SCH (21:48)
[2017-06-05 08:00] VITALS: BP 135/65
[2017-06-05] MEDS: VENLAFAXINE XR 75 MG CAP.SR.24H PO SCH (08:39)
[2017-06-05] MEDS: LEVOTHYROXINE SODIUM 125 MCG TABLET PO SCH (08:39)
[2017-06-05] MEDS: oxyCODONE/APAP (5/325 MG) 1 UDTAB TABLET PO PRN ×2 (09:17→17:15)
[2017-06-05 15:14] VITALS: BP 108/85
[2017-06-05 20:00] VITALS: BP 104/63
[2017-06-05] MEDS: ATORVASTATIN 10 MG TABLET PO SCH (22:07)
[2017-06-05] MEDS: TRAZODONE 50 MG TABLET PO SCH (22:07)
[2017-06-05] MEDS: QUETIAPINE FUMARATE 100 MG TABLET PO SCH (22:07)
[2017-06-06] MEDS: LEVOTHYROXINE SODIUM 125 MCG TABLET PO SCH (07:29)
[2017-06-06 08:00] VITALS: BP 91/51
[2017-06-06] MEDS: VENLAFAXINE XR 75 MG CAP.SR.24H PO SCH (08:03)
[2017-06-06] MEDS: oxyCODONE/APAP (5/325 MG) 1 UDTAB TABLET PO PRN ×2 (08:04→16:06)
[2017-06-06 16:00] VITALS: BP 101/63
[2017-06-06 20:00] VITALS: BP 103/64
[2017-06-06] MEDS: TRAZODONE 50 MG TABLET PO SCH (21:49)
[2017-06-06] MEDS: QUETIAPINE FUMARATE 100 MG TABLET PO SCH (21:49)
[2017-06-06] MEDS: ATORVASTATIN 10 MG TABLET PO SCH (21:49)
[2017-06-07] MEDS: oxyCODONE/APAP (5/325 MG) 1 UDTAB TABLET PO PRN ×2 (00:16→19:29)
[2017-06-07 08:00] VITALS: BP 90/52
[2017-06-07] MEDS: LEVOTHYROXINE SODIUM 125 MCG TABLET PO SCH (08:21)
[2017-06-07] MEDS: VENLAFAXINE XR 75 MG CAP.SR.24H PO SCH (08:21)
[2017-06-07 16:00] VITALS: BP 99/61
[2017-06-07 20:08] VITALS: BP 130/77
[2017-06-07] MEDS: TRAZODONE 50 MG TABLET PO SCH (21:46)
[2017-06-07] MEDS: QUETIAPINE FUMARATE 100 MG TABLET PO SCH (21:46)
[2017-06-07] MEDS: ATORVASTATIN 10 MG TABLET PO SCH (21:46)
[2017-06-08 08:00] VITALS: BP 105/72
[2017-06-08] MEDS: VENLAFAXINE XR 75 MG CAP.SR.24H PO SCH (08:16)
[2017-06-08] MEDS: LEVOTHYROXINE SODIUM 125 MCG TABLET PO SCH (08:17)
[2017-06-08] MEDS: oxyCODONE/APAP (5/325 MG) 1 UDTAB TABLET PO PRN ×2 (08:20→16:25)
[2017-06-08] MEDS ORDERED: TEMAZEPAM 7.5 MG CAPSULE PO PRN (09:30)
[2017-06-08 16:00] VITALS: BP 111/62
[2017-06-08] MEDS: LORAZEPAM 0.5 MG TABLET PO PRN (17:45)
[2017-06-08 19:38] VITALS: BP 104/63
[2017-06-08] MEDS: ATORVASTATIN 10 MG TABLET PO SCH (21:01)
[2017-06-08] MEDS: QUETIAPINE FUMARATE 100 MG TABLET PO SCH (21:01)
[2017-06-08] MEDS: TRAZODONE 50 MG TABLET PO SCH (21:01)
[2017-06-09] MEDS: oxyCODONE/APAP (5/325 MG) 1 UDTAB TABLET PO PRN ×3 (00:40→20:51)
[2017-06-09] MEDS: LEVOTHYROXINE SODIUM 125 MCG TABLET PO SCH (07:30)
[2017-06-09 08:00] VITALS: BP 105/59
[2017-06-09] MEDS: VENLAFAXINE XR 75 MG CAP.SR.24H PO SCH (09:28)
[2017-06-09] MEDS: LORAZEPAM 0.5 MG TABLET PO PRN (14:49)
[2017-06-09 16:00] VITALS: BP 104/60
[2017-06-09 20:00] VITALS: BP 110/70
[2017-06-09] MEDS: TRAZODONE 50 MG TABLET PO SCH (21:38)
[2017-06-09] MEDS: ATORVASTATIN 10 MG TABLET PO SCH (21:39)
[2017-06-09] MEDS ORDERED: QUETIAPINE FUMARATE 25 MG TABLET PO SCH (22:00)
[2017-06-10 07:11] LABS: BASOPHILS % (AUTO) 0.4 % (0.0-2.0); EOSINOPHILS # (AUTO) 0.1 /CMM (0.0-0.7); EOSINOPHILS % (AUTO) 2.5 % (0.0-6.0); HEMATOCRIT 32 % (33-45); HEMOGLOBIN 10.7 g/dL (11.5-14.8); LYMPHOCYTES # (AUTO) 1.8 /CMM (0.8-4.8); LYMPHOCYTES % (AUTO) 35.9 % (20.0-44.0); MEAN CORPUSCULAR HEMOGLOBIN 32 PG (26.0-33.0); MEAN CORPUSCULAR HGB CONC 34 g/dl (31.0-36.0); MEAN CORPUSCULAR VOLUME 96 fL (82-100); MONOCYTES # (AUTO) 0.9 /CMM (0.1-1.30); MONOCYTES % (AUTO) 17.2 % (2.0-12.0); NEUTROPHILS # (AUTO) 2.2 /CMM (1.8-8.9); PLATELET COUNT (AUTO) 344 /CMM (150-450); RDW COEFFICIENT OF VARIATION 15.5 (11.5-15.0); WHITE BLOOD COUNT (AUTO) 5.1 K/uL (4.3-11.0)
[2017-06-10] MEDS: LEVOTHYROXINE SODIUM 125 MCG TABLET PO SCH (07:30)
[2017-06-10 08:00] VITALS: BP 103/56
[2017-06-10] MEDS: VENLAFAXINE XR 75 MG CAP.SR.24H PO SCH (09:25)
[2017-06-10] MEDS: oxyCODONE/APAP (5/325 MG) 1 UDTAB TABLET PO PRN ×3 (09:26→21:58)
[2017-06-10 09:39] LABS: LYMPHOCYTES % (MANUAL) 43 % (16-48); MONOCYTES % (MANUAL) 18 % (0-11.0); NEUTROPHILS % (MANUAL) 39 (42-76)
[2017-06-10 16:00] VITALS: BP 111/58
[2017-06-10 20:03] VITALS: BP 123/71
[2017-06-10] MEDS: QUETIAPINE FUMARATE 100 MG TABLET PO SCH (21:56)
[2017-06-10] MEDS: TRAZODONE 50 MG TABLET PO SCH (21:56)
[2017-06-10] MEDS: ATORVASTATIN 10 MG TABLET PO SCH (22:06)
[2017-06-11 08:11] VITALS: BP 100/58
[2017-06-11] MEDS: LEVOTHYROXINE SODIUM 125 MCG TABLET PO SCH (08:14)
[2017-06-11] MEDS: VENLAFAXINE XR 75 MG CAP.SR.24H PO SCH (08:14)
[2017-06-11] MEDS: oxyCODONE/APAP (5/325 MG) 1 UDTAB TABLET PO PRN ×3 (08:18→20:56)
[2017-06-11] MEDS: QUETIAPINE FUMARATE 25 MG TABLET PO SCH ×2 (10:00→10:28)
[2017-06-11 16:00] VITALS: BP 119/65
[2017-06-11 19:57] VITALS: BP 112/69
[2017-06-11 20:00] VITALS: BP 112/69
[2017-06-11] MEDS: TRAZODONE 50 MG TABLET PO SCH (21:26)
[2017-06-11] MEDS: ATORVASTATIN 10 MG TABLET PO SCH (21:26)
[2017-06-11] MEDS: QUETIAPINE FUMARATE 100 MG TABLET PO SCH (21:26)
[2017-06-12 08:00] VITALS: BP 134/80
[2017-06-12] MEDS: LEVOTHYROXINE SODIUM 125 MCG TABLET PO SCH (08:22)
[2017-06-12] MEDS: VENLAFAXINE XR 75 MG CAP.SR.24H PO SCH (08:23)
[2017-06-12] MEDS: QUETIAPINE FUMARATE 25 MG TABLET PO SCH (08:31)
[2017-06-12] MEDS: oxyCODONE/APAP (5/325 MG) 1 UDTAB TABLET PO PRN ×3 (09:49→20:18)
[2017-06-12 16:00] VITALS: BP 100/67
[2017-06-12 20:00] VITALS: BP 103/70
[2017-06-12] MEDS: ATORVASTATIN 10 MG TABLET PO SCH (21:24)
[2017-06-12] MEDS: TRAZODONE 50 MG TABLET PO SCH (21:26)
[2017-06-12] MEDS: QUETIAPINE FUMARATE 100 MG TABLET PO SCH (21:28)
[2017-06-13] MEDS: oxyCODONE/APAP (5/325 MG) 1 UDTAB TABLET PO PRN ×4 (03:18→22:06)
[2017-06-13 08:34] VITALS: BP 108/57
[2017-06-13] MEDS: VENLAFAXINE XR 75 MG CAP.SR.24H PO SCH (08:43)
[2017-06-13] MEDS: LEVOTHYROXINE SODIUM 125 MCG TABLET PO SCH (08:43)
[2017-06-13 16:00] VITALS: BP 122/66
[2017-06-13 20:00] VITALS: BP 100/62
[2017-06-13] MEDS: TRAZODONE 50 MG TABLET PO SCH (23:10)
[2017-06-13] MEDS: ATORVASTATIN 10 MG TABLET PO SCH (23:11)
[2017-06-13] MEDS: QUETIAPINE FUMARATE 100 MG TABLET PO SCH (23:13)
[2017-06-14 08:00] VITALS: BP 100/52
[2017-06-14] MEDS: VENLAFAXINE XR 75 MG CAP.SR.24H PO SCH (08:48)
[2017-06-14] MEDS: LEVOTHYROXINE SODIUM 125 MCG TABLET PO SCH (08:48)
[2017-06-14] MEDS: oxyCODONE/APAP (5/325 MG) 1 UDTAB TABLET PO PRN ×3 (09:01→21:11)
[2017-06-14 15:48] VITALS: BP 116/69
[2017-06-14 20:27] VITALS: BP 100/58
[2017-06-14 21:12] VITALS: BP 110/65
[2017-06-14] MEDS: TRAZODONE 50 MG TABLET PO SCH (22:23)
[2017-06-14] MEDS: ATORVASTATIN 10 MG TABLET PO SCH (22:23)
[2017-06-14] MEDS: QUETIAPINE FUMARATE 100 MG TABLET PO SCH (22:27)
[2017-06-15 08:00] VITALS: BP 107/60
[2017-06-15] MEDS: VENLAFAXINE XR 75 MG CAP.SR.24H PO SCH (08:33)
[2017-06-15] MEDS: LEVOTHYROXINE SODIUM 125 MCG TABLET PO SCH (08:33)
[2017-06-15] MEDS: oxyCODONE/APAP (5/325 MG) 1 UDTAB TABLET PO PRN (08:34)
[2017-06-15 16:00] VITALS: BP 102/68
== END 2017-06-15 16:35 | disposition home or self-care (01) | DRG 885 ==
LOC: ER 00:44 → GPS 03:33 → UNDODISIN 10:55 → GPS 16:06
PROVIDERS: ADMIT Psychiatry & Neurology Psychiatry; ATTEND Nurse Practitioner Acute Care
DX: F33.2 Major depressive disorder, recurrent severe without psychotic features (principal); R45.851 Suicidal ideations; M41.86 Other forms of scoliosis, lumbar region; E03.9 Hypothyroidism, unspecified; E78.5 Hyperlipidemia, unspecified; G89.4 Chronic pain syndrome; Z90.710 Acquired absence of both cervix and uterus; F41.9 Anxiety disorder, unspecified; Z91.81 History of falling; Z59.0 Homelessness; Z88.2 Allergy status to sulfonamides
CPT/HCPCS: 36415; 72020-TC; 80048-TC; 80076-TC; 80305; 81000-TC; 82565-TC; 85025-TC; 87081-TC; A4606; G0480; Q0162; Z7610

== ENCOUNTER 2017-11-11 22:30 | Inpatient (IN) | payer MEDICARE ==
[~2017-11-11] VITALS: Ht 162.6 cm; Wt 51.3 kg
--- NOTE | 2017-11-11 22:44 | NUR ---
BIB SELF; 72 YO FEMALE ALERT AND ORIENTED, STATES SHE FEELS DEPRESSED X 2 MONTHS. PATIENT AMBULATED TO ER BED WITH STEADY AGAIT, SKIN WARM AND DRY, RESP EVEN AND UNLABORED. PATIENT DENEIS ANY MEDICAL COMPLAINTS. AWAITING ORDERS FROM PROVIDER, WILL CONTINUE TO MONITOR
--- NOTE | 2017-11-11 22:45 | NUR ---
MD DAVIS AT BED SIDE FOR EVAL
--- NOTE | 2017-11-11 23:01 | NUR ---
animal laboratory helper at bed side for blood draw
[2017-11-11 23:04] LABS: BASOPHILS % (AUTO) 0.3 % (0.0-2.0); EOSINOPHILS % (AUTO) 0.3 % (0.0-6.0); HEMATOCRIT 43 % (33-45); HEMOGLOBIN 13.8 g/dL (11.5-14.8); LYMPHOCYTES # (AUTO) 2.8 /CMM (0.8-4.8); LYMPHOCYTES % (AUTO) 24.6 % (20.0-44.0); MEAN CORPUSCULAR HEMOGLOBIN 33 PG (26.0-33.0); MEAN CORPUSCULAR HGB CONC 32 g/dl (31.0-36.0); MEAN CORPUSCULAR VOLUME 101 fL (82-100); MONOCYTES % (AUTO) 8.6 % (2.0-12.0); NEUTROPHILS # (AUTO) 7.5 /CMM (1.8-8.9); NEUTROPHILS % (AUTO) 66.2 % (43.0-81.0); PLATELET COUNT (AUTO) 457 /CMM (150-450); RDW COEFFICIENT OF VARIATION 13.3 (11.5-15.0); RED BLOOD CELL COUNT(AUTO) 4.22 MIL/uL (4.0-5.2); WHITE BLOOD COUNT (AUTO) 11.4 K/uL (4.3-11.0)
[2017-11-11 23:15] LABS: CALCIUM, SERUM 9.1 mg/dL (8.5-10.1); CARBON DIOXIDE 25 mmol/L (21-32); CHLORIDE 103 mmol/L (98-107); CREATININE 0.8 mg/dL (0.6-1.3); GLUCOSE 107 mg/dL (74-106); POTASSIUM 4.1 mmol/L (3.5-5.1); SODIUM SERUM 138 mmol/L (136-145); UREA NITROGEN, BLOOD 13 mg/dL (7-18)
[2017-11-11 23:16] LABS: ALCOHOL, BLOOD < 3 mg/dL (0-0)
--- NOTE | 2017-11-11 23:48 | NUR ---
PAGED FLAQUITO RAJPUT FOR EVAL
--- NOTE | 2017-11-12 00:39 | NUR ---
joey took report for kala
--- NOTE | 2017-11-12 02:05 | NUR ---
tansported pt to [facility] bed via [facility] without incident
[2017-11-12 02:15] VITALS: BP 125/63
--- NOTE | 2017-11-12 02:15 | NUR ---
GPS-RN ADMITTED A 72-Y/O FEMALE, FROM [facility]. PT IS ON 5150 HOLD FOR DANGER TO SELF. PER HOLD PATIENT WAS EVALUATED FOR DEPRESSION AND SI. UPON FACE TO FACE ASSESSMENT, PATIENT APPEARS TO BE ALERT, ORIENTED X3, COOPERATIVE, ANXIOUS AND NEEDY. NO ACUTE DISTRESS NOTED. CONTINENT OF BOWEL AND BLADDER. AMBULATORY WITH STEADY GAIT. BELONGINGS INVENTORIED AND CHECKED FOR CONTRABAND. REVIEWED PATIENT'S RIGHT AND VERBALIZED UNDERSTANDING. PATIENT IS UNDER THE PSYCHIATRIC CARE OF DR. HONG, ORDERS OBTAINED, AND UNDER THE MEDICAL CARE OF DR. CORONEL, BOTH DOCTORS ARE AWARE OF THE ADMISSION. SKIN BODY ASSESSMENT DONE. BED LOCKED AND PLACED IN LOWEST POSITION. ROOM SAFETY CHECKED. FALL PRECAUTIONS IMPLEMENTED. WILL CONTINUE TO MONITOR Q15MIN ROUNDS FOR SAFETY AND BEHAVIOR.
[2017-11-12] MEDS ORDERED: MAG HYDROX/AL HYDROX/SIMETH 30 ML UDC PO PRN (02:30)
[2017-11-12] MEDS ORDERED: MAGNESIUM HYDROXIDE 30 ML UDC PO PRN (02:30)
[2017-11-12] MEDS ORDERED: ACETAMINOPHEN 325 MG TABLET PO PRN (02:30)
[2017-11-12] MEDS ORDERED: ONDANSETRON 4 MG TAB.RAPDIS PO PRN (02:30)
[2017-11-12 02:44] LABS: APPEARANCE,URINE CLEAR (CLEAR); BILIRUBIN,URINE NEGATIVE (NEGATIVE); BLOOD, URINE TRACE-INTA Ery/uL (NEGATIVE); COLOR,URINE YELLOW (YELLOW); KETONES,URINE NEGATIVE (NEGATIVE); LEUKOCYTE ESTERASE ,URINE 3+ (NEGATIVE); NITRITE, URINE NEGATIVE (NEGATIVE); PROTEIN,URINE NEGATIVE (NEGATIVE); UGLUCOSE NEGATIVE (NEGATIVE); UROBILINOGEN,URINE 0.2 EU/dL (0.2)
[2017-11-12 02:52] LABS: BACTERIA,URINE None seen /HPF (None Seen); RBC,URINE 0-2 /HPF (0-2); SQUAMOUS EPITHELIAL CELL,UR Few /HPF (None Seen)
[2017-11-12] MEDS ORDERED: LORAZEPAM 0.5 MG TABLET PO PRN (03:00)
[2017-11-12] MEDS ORDERED: ZOLPIDEM TARTRATE 5 MG TABLET PO PRN (03:00)
[2017-11-12 08:00] VITALS: BP 100/52
[2017-11-12] MEDS: LEVOTHYROXINE SODIUM 125 MCG TABLET PO SCH (08:28)
[2017-11-12] MEDS: oxyCODONE/APAP (5/325 MG) 1 UDTAB TABLET PO PRN ×2 (13:53→22:53)
--- NOTE | 2017-11-12 13:54 | NUR ---
GPS/RN-NOTES PATIENT C/O 8 LOWER BACK PAIN. PERCOCET 5MG/325MG 2 TABS. GIVEN PRN ORDER. WILL CONT. MONITORING FOR SAFETY.
[2017-11-12] MEDS: QUETIAPINE FUMARATE 25 MG TABLET PO SCH (15:05)
[2017-11-12] MEDS: VENLAFAXINE XR 75 MG CAP.SR.24H PO SCH (15:05)
[2017-11-12 16:00] VITALS: BP 112/64
[2017-11-12 20:26] VITALS: BP 99/59
[2017-11-12] MEDS: TRAZODONE 50 MG TABLET PO SCH (21:36)
[2017-11-12] MEDS: QUETIAPINE FUMARATE 100 MG TABLET PO SCH (21:36)
[2017-11-12] MEDS: ATORVASTATIN 10 MG TABLET PO SCH (21:36)
[2017-11-13 07:02] LABS: ALANINE AMINOTRANSFERASE 11 U/L (12-78); ALBUMIN 2.9 g/dL (3.4-5.0); ALKALINE PHOSPHATASE 107 U/L (46-116); ASPARTATE AMINOTRANSFERASE 13 U/L (15-37); BILIRUBIN,TOTAL 0.2 mg/dL (0.2-1.0); CALCIUM, SERUM 8.4 mg/dL (8.5-10.1); CARBON DIOXIDE 28 mmol/L (21-32); CHLORIDE 107 mmol/L (98-107); CREATININE 0.6 mg/dL (0.6-1.3); GLUCOSE 95 mg/dL (74-106); POTASSIUM 3.9 mmol/L (3.5-5.1); SODIUM SERUM 141 mmol/L (136-145); UREA NITROGEN, BLOOD 11 mg/dL (7-18)
[2017-11-13 07:18] LABS: CHOLESTEROL 140 mg/dL (<200); HDL CHOLESTEROL 51 mg/dL (40-60); LDL 73 mg/dL (0-99); TRIGLYCERIDES 80 mg/dL (30-150)
[2017-11-13 08:00] VITALS: BP 109/63
[2017-11-13] MEDS: LEVOTHYROXINE SODIUM 125 MCG TABLET PO SCH (08:00)
[2017-11-13] MEDS: QUETIAPINE FUMARATE 25 MG TABLET PO SCH (08:00)
[2017-11-13] MEDS: oxyCODONE/APAP (5/325 MG) 1 UDTAB TABLET PO PRN ×2 (08:02→16:04)
[2017-11-13] MEDS: VENLAFAXINE XR 75 MG CAP.SR.24H PO SCH (08:02)
--- NOTE | 2017-11-13 08:57 | NUR ---
DARRION faxed SNF referral to [employer] supply chain coordinator at [facility] Address: [address], [place] [address] for review.
--- NOTE | 2017-11-13 10:47 | NUR ---
INITIAL DISCHARGE PLAN: Patient wishes to be discharged to [facility] Address: [address] [place] [address], [place] [address] . DARRION will help form a safe and proper discharge in collaboration with .
[2017-11-13 16:00] VITALS: BP 117/67
--- NOTE | 2017-11-13 16:26 | NUR ---
DARRION received a phone call from Valentín admissions nurse at [address] [address] stating that pt had already been accepted to their facility and was ready to move in before being hospitalized. Valentín stated that he would visit pt on Thursday11/17/17 to talk to pt and SW to coordinate discharge plan.
[2017-11-13 20:00] VITALS: BP 107/65
[2017-11-13] MEDS: QUETIAPINE FUMARATE 100 MG TABLET PO SCH (21:54)
[2017-11-13] MEDS: ATORVASTATIN 10 MG TABLET PO SCH (21:54)
[2017-11-13] MEDS: TRAZODONE 50 MG TABLET PO SCH (21:54)
[2017-11-14] MEDS: oxyCODONE/APAP (5/325 MG) 1 UDTAB TABLET PO PRN ×3 (02:53→19:11)
[2017-11-14 08:00] VITALS: BP 132/99
[2017-11-14] MEDS: VENLAFAXINE XR 75 MG CAP.SR.24H PO SCH (08:59)
[2017-11-14] MEDS: LEVOTHYROXINE SODIUM 125 MCG TABLET PO SCH (08:59)
[2017-11-14] MEDS: QUETIAPINE FUMARATE 25 MG TABLET PO SCH (09:02)
[2017-11-14 16:00] VITALS: BP 107/68
[2017-11-14 20:00] VITALS: BP 105/68
[2017-11-14] MEDS: QUETIAPINE FUMARATE 100 MG TABLET PO SCH (22:12)
[2017-11-14] MEDS: ATORVASTATIN 10 MG TABLET PO SCH (22:12)
[2017-11-14] MEDS: TRAZODONE 50 MG TABLET PO SCH (22:12)
[2017-11-15] MEDS: oxyCODONE/APAP (5/325 MG) 1 UDTAB TABLET PO PRN ×3 (04:54→21:13)
[2017-11-15 08:00] VITALS: BP 108/52
[2017-11-15] MEDS: QUETIAPINE FUMARATE 25 MG TABLET PO SCH (09:16)
[2017-11-15] MEDS: LEVOTHYROXINE SODIUM 125 MCG TABLET PO SCH (09:16)
[2017-11-15] MEDS: VENLAFAXINE XR 75 MG CAP.SR.24H PO SCH (09:16)
--- NOTE | 2017-11-15 13:05 | NUR ---
RN NOTES PATIENT COMPLAINING OF GENERALIZED PAIN 09/29 ADMINISTERED PERCOCET 5/325 TWO TABS PER PATIENT REQUEST, V/S TAKEN BP- 110/56, P-82, CONTINUED MONITORING.
[2017-11-15 16:00] VITALS: BP 105/69
[2017-11-15 20:16] VITALS: BP 112/73
[2017-11-15] MEDS: QUETIAPINE FUMARATE 100 MG TABLET PO SCH (22:01)
[2017-11-15] MEDS: ATORVASTATIN 10 MG TABLET PO SCH (22:01)
[2017-11-15] MEDS: TRAZODONE 50 MG TABLET PO SCH (22:01)
[2017-11-15 23:00] VITALS: BP 118/68
[2017-11-16 08:00] VITALS: BP 106/63
[2017-11-16] MEDS: QUETIAPINE FUMARATE 25 MG TABLET PO SCH ×3 (09:00→21:53)
[2017-11-16] MEDS: LEVOTHYROXINE SODIUM 125 MCG TABLET PO SCH (09:15)
[2017-11-16] MEDS: VENLAFAXINE XR 75 MG CAP.SR.24H PO SCH (09:17)
[2017-11-16] MEDS: oxyCODONE/APAP (5/325 MG) 1 UDTAB TABLET PO PRN ×2 (14:45→21:59)
[2017-11-16 16:00] VITALS: BP 100/67
--- NOTE | 2017-11-16 16:17 | NUR ---
Valentín nursing information systems coordinator at [facility] [address] [facility] [phone] came to speak to pt regarding placement and pt agreed to placement at their facility.
[2017-11-16 21:28] VITALS: BP 95/49
[2017-11-16] MEDS: TRAZODONE 50 MG TABLET PO SCH (21:52)
[2017-11-16] MEDS: ATORVASTATIN 10 MG TABLET PO SCH (21:53)
[2017-11-17 08:00] VITALS: BP 100/60
[2017-11-17] MEDS: oxyCODONE/APAP (5/325 MG) 1 UDTAB TABLET PO PRN ×2 (08:29→16:38)
[2017-11-17] MEDS: VENLAFAXINE XR 75 MG CAP.SR.24H PO SCH (08:30)
[2017-11-17] MEDS: LEVOTHYROXINE SODIUM 125 MCG TABLET PO SCH (08:30)
[2017-11-17] MEDS: QUETIAPINE FUMARATE 25 MG TABLET PO SCH ×2 (08:31→21:26)
[2017-11-17 16:00] VITALS: BP_SYST 106; BP_SYST 126; BP_DIAS 55; BP_DIAS 80
--- NOTE | 2017-11-17 19:27 | NUR ---
RN NOTE PATIENT REMAINED STABLE THROUGHOUT SHIFT. WILL ENDORSE TO NEXT TO CONTINUE TO MONITOR CONTINUITY OF CARE.
[2017-11-17 20:36] VITALS: BP 117/70
[2017-11-17] MEDS: TRAZODONE 50 MG TABLET PO SCH (21:26)
[2017-11-17] MEDS: ATORVASTATIN 10 MG TABLET PO SCH (21:26)
[2017-11-18 08:00] VITALS: BP 100/61
[2017-11-18] MEDS: QUETIAPINE FUMARATE 25 MG TABLET PO SCH ×2 (08:25→21:22)
[2017-11-18] MEDS: LEVOTHYROXINE SODIUM 125 MCG TABLET PO SCH (08:25)
[2017-11-18] MEDS: VENLAFAXINE XR 75 MG CAP.SR.24H PO SCH (08:25)
[2017-11-18] MEDS: oxyCODONE/APAP (5/325 MG) 1 UDTAB TABLET PO PRN ×2 (08:25→16:39)
[2017-11-18 16:00] VITALS: BP 103/65
[2017-11-18 19:45] VITALS: BP 114/71
[2017-11-18] MEDS: ATORVASTATIN 10 MG TABLET PO SCH (21:21)
[2017-11-18] MEDS: TRAZODONE 50 MG TABLET PO SCH (21:22)
[2017-11-19] MEDS: oxyCODONE/APAP (5/325 MG) 1 UDTAB TABLET PO PRN ×2 (06:00→15:47)
[2017-11-19] MEDS: LEVOTHYROXINE SODIUM 125 MCG TABLET PO SCH (08:48)
[2017-11-19] MEDS: VENLAFAXINE XR 75 MG CAP.SR.24H PO SCH (08:48)
[2017-11-19] MEDS: QUETIAPINE FUMARATE 25 MG TABLET PO SCH ×2 (08:49→21:04)
[2017-11-19 09:07] VITALS: BP 100/57
--- NOTE | 2017-11-19 15:47 | NUR ---
GPS/RN PATIENT C/O 10/30 GENERALIZED PAIN, ADMINISTERED PERCOCET 2 TABS PER PATIENT REQUEST. WILL CONTINUE TO MONITOR.
[2017-11-19 17:11] VITALS: BP 111/73
[2017-11-19 19:55] VITALS: BP 100/59
[2017-11-19 20:00] VITALS: BP 100/59
[2017-11-19] MEDS: ATORVASTATIN 10 MG TABLET PO SCH (21:04)
[2017-11-19] MEDS: TRAZODONE 50 MG TABLET PO SCH (21:04)
[2017-11-20] MEDS: oxyCODONE/APAP (5/325 MG) 1 UDTAB TABLET PO PRN ×2 (01:11→09:16)
[2017-11-20 08:00] VITALS: BP 102/71
[2017-11-20] MEDS: QUETIAPINE FUMARATE 25 MG TABLET PO SCH ×2 (09:00→09:02)
[2017-11-20] MEDS: LEVOTHYROXINE SODIUM 125 MCG TABLET PO SCH (09:02)
[2017-11-20] MEDS: VENLAFAXINE XR 75 MG CAP.SR.24H PO SCH (09:02)
--- NOTE | 2017-11-20 12:09 | NUR ---
RN NOTE: PATIENT LEFT THE UNIT AT 1205 VIA [employer]. PATIENT IS MEDICALLY STABLE. DENIES SI/HI DURING DISCHARGE. PSYCHIATRIST GAVE DC ORDER AND DISCONTINUE HOLD. STENCILER MADE AWARE AND AGREES OF DISCHARGE. BELONGINGS WITH PATIENT. EXIT CARE WITH PATIENT. SKIN ASSESSMENT COMPLETE AND IN CHART. REPORT GIVEN TO ARIELLE AT FACILITY
--- NOTE | 2017-11-20 14:21 | NUR ---
DISCHARGE NOTE: Pt was discharged at 12:00pm via [facility] to [facility] [address] [facility] [id number] . Pt has not family to notify. Pt was in a pleasant mood with congruent affect. Pt denied suicidal/homicidal ideations and denied visual/auditory hallucinations. Pt will schedule a follow up appointment with Activities Leader: Dr. Akbar Dumont [address] [facility] [address], [place], [place] [id number] [phone] and has a scheduled appointment with Psychiatrist: Dr. Wilda Kelly [address] [facility] [address] [place], [place] [phone] on 11/30/17 at 10:40am. Patient was provided referrals to address her substance and alcohol use. Patient was referred to the [address] [address] / and was encouraged to present at 9am on Thursday, November 24, 2017. Additional resources included [facility] [address] [place] [address] and [facility] [address] [place] [address] . For smoking cessation, patient was referred to the [employer] or [employer] [id number]. The multidisciplinary exitcare form was done, printed, signed, and given to the patient.
== END 2017-11-20 12:05 | DRG 885 ==
LOC: ER 22:31 → GPS 11-12 02:00
PROVIDERS: ADMIT Psychiatry & Neurology Psychiatry; ATTEND Nurse Practitioner Acute Care
DX: F33.3 Major depressive disorder, recurrent, severe with psychotic symptoms (principal); R45.851 Suicidal ideations; F12.10 Cannabis abuse, uncomplicated; E03.9 Hypothyroidism, unspecified; D72.829 Elevated white blood cell count, unspecified; E78.5 Hyperlipidemia, unspecified; F17.210 Nicotine dependence, cigarettes, uncomplicated; F43.10 Post-traumatic stress disorder, unspecified; G47.00 Insomnia, unspecified; Z59.0 Homelessness; G89.29 Other chronic pain; R21 Rash and other nonspecific skin eruption
CPT/HCPCS: 36415; 80048-TC; 80053-TC; 80061-TC; 80305; 81000-TC; 85025-TC; 87081-TC; 87086-TC; A4606; G0480; Z7610

== ENCOUNTER 2018-05-26 11:28 | Inpatient (IN) | payer MEDICARE ==
[~2018-05-26] VITALS: Ht 162.6 cm; Wt 45.4 kg
--- NOTE | 2018-05-26 11:30 | NUR ---
BIB SELF, W C/O CHRONIC BACK PAIN GONE WORSE, S/P FALL YESTERDAY, TO ER BED 3, HOOKED TO MONITOR, AWAITING MD BAIRD
--- NOTE | 2018-05-26 11:40 | NUR ---
VERBALIZED THAT SHE IS FEELING DEPRESSED, LOST HER PLACE OF LIVING AND HOMELESS OF TODAY. VERBALIZED THAT SHE HAS THOUGHTS OF DOING SUICIDE AND DOESN'T HAVE A PLAN.
--- NOTE | 2018-05-26 12:10 | NUR ---
DR HASSAN AT BEDSIDE
[2018-05-26 12:33] LABS: BASOPHILS # (AUTO) 0.1 /CMM (0.0-0.2); BASOPHILS % (AUTO) 0.8 % (0.0-2.0); EOSINOPHILS % (AUTO) 0.3 % (0.0-6.0); HEMATOCRIT 37 % (33-45); HEMOGLOBIN 12.3 g/dL (11.5-14.8); LYMPHOCYTES # (AUTO) 1.5 /CMM (0.8-4.8); LYMPHOCYTES % (AUTO) 21.1 % (20.0-44.0); MEAN CORPUSCULAR HGB CONC 33 g/dl (31.0-36.0); MEAN CORPUSCULAR VOLUME 98 fL (82-100); MONOCYTES # (AUTO) 0.8 /CMM (0.1-1.30); MONOCYTES % (AUTO) 11.1 % (2.0-12.0); NEUTROPHILS # (AUTO) 4.9 /CMM (1.8-8.9); NEUTROPHILS % (AUTO) 66.7 % (43.0-81.0); PLATELET COUNT (AUTO) 388 /CMM (150-450); WHITE BLOOD COUNT (AUTO) 7.3 K/uL (4.3-11.0)
[2018-05-26 12:41] LABS: CALCIUM, SERUM 8.9 mg/dL (8.5-10.1); CARBON DIOXIDE 24 mmol/L (21-32); CHLORIDE 103 mmol/L (98-107); CREATININE 0.6 mg/dL (0.6-1.3); GLUCOSE 104 mg/dL (74-106); POTASSIUM 3.9 mmol/L (3.5-5.1); SODIUM SERUM 136 mmol/L (136-145); UREA NITROGEN, BLOOD 9 mg/dL (7-18)
[2018-05-26 12:46] LABS: ALANINE AMINOTRANSFERASE 12 U/L (12-78); ALBUMIN 3.6 g/dL (3.4-5.0); ALCOHOL, BLOOD < 3 mg/dL (0-0); ALKALINE PHOSPHATASE 104 U/L (46-116); ASPARTATE AMINOTRANSFERASE 13 U/L (15-37); BILIRUBIN,DIRECT 0.1 mg/dL (0.0-0.2); BILIRUBIN,TOTAL 0.4 mg/dL (0.2-1.0); SALICYLATE 4.3 mg/dL (2.8-20.0)
[2018-05-26 12:47] LABS: ACETAMINOPHEN 0 ug/ml (10-30)
[2018-05-26] MEDS ORDERED: oxyCODONE/APAP (5/325 MG) 1 UDTAB TABLET ONE (12:56)
[2018-05-26] MEDS ORDERED: oxyCODONE/APAP (5/325 MG) 1 UDTAB TABLET PO ONE (13:00)
[2018-05-26] MEDS ORDERED: QUET100T PO (14:42)
[2018-05-26] MEDS ORDERED: TRAZ-214 PO (14:42)
[2018-05-26] MEDS ORDERED: QUET25TA PO (14:42)
[2018-05-26] MEDS ORDERED: VENL75CA56 PO (14:42)
--- NOTE | 2018-05-26 15:05 | NUR ---
REPORT GIVEN ANJALI JONES FOR BOUBACAR
--- NOTE | 2018-05-26 15:17 | NUR ---
PROVIDED PT WITH SANDWICH AND WATER, TOLERATING PO WELL
[2018-05-26 16:00] VITALS: BP 143/79
[2018-05-26] MEDS ORDERED: MAG HYDROX/AL HYDROX/SIMETH 30 ML UDC PO PRN (16:30)
[2018-05-26] MEDS ORDERED: MAGNESIUM HYDROXIDE 30 ML UDC PO PRN (16:30)
--- NOTE | 2018-05-26 18:19 | NUR ---
GPS/RN-NOTES ADMITTED 72 Y.O FEMALE PATIENT FROM [facility] ER. PATIENT ON [address] CLEVELAND (PSYCHIATRIST) MADE AWARE WITH ORDERS.DR. RECIO SEEN THE PATIENT AND RECONCILED MEDICATIONS. UPON FACE TO FACE ASSESSMENT PATIENT ALERT ORIENTED X3 AMBULATORY USING WALKER.PATIENT VERBALIZED THAT SHE IS DEPRESSED BUT DENIES SI/HI. ENCOURAGE PATIENT TO VERBALIZE FEELINGS TO THE STAFF.FULL BODY ASSESSMENT DONE,CONTRABAND DONE. PATIENT PERSONAL COMPUTER WAS KEPT IN THE PATIENT ROOM LOCKER. PATIENT WAS ORIENTED IN THE UNIT AND UNIT POLICIES. PATIENT'S RIGHT WAS DISCUSS WITH THE PATIENT WITH UNDERSTANDING. BOOKLET WAS GIVEN TO THE PATIENT. PATIENT RESPONSIBLE GREEN PARTY VANNESA STAFFORD WAS MADE AWARE OF THE ADMISSION.WILL ENDORSE TO THE NEXT SHIFT FOR CONTINUITY OF CARE.
[2018-05-26 20:49] VITALS: BP 91/53
[2018-05-27] MEDS: ACETAMINOPHEN 325 MG TABLET PO PRN (06:05)
[2018-05-27 07:45] LABS: ALANINE AMINOTRANSFERASE 16 U/L (12-78); ALBUMIN 3.5 g/dL (3.4-5.0); ALKALINE PHOSPHATASE 103 U/L (46-116); ASPARTATE AMINOTRANSFERASE 12 U/L (15-37); BILIRUBIN,TOTAL 0.3 mg/dL (0.2-1.0); CARBON DIOXIDE 25 mmol/L (21-32); CHLORIDE 108 mmol/L (98-107); CREATININE 0.6 mg/dL (0.6-1.3); GLUCOSE 105 mg/dL (74-106); SODIUM SERUM 143 mmol/L (136-145); TOTAL PROTEIN, SERUM 6.9 g/dL (6.4-8.2); UREA NITROGEN, BLOOD 15 mg/dL (7-18)
[2018-05-27 07:51] LABS: CHOLESTEROL 204 mg/dL (<200); HDL CHOLESTEROL 80 mg/dL (40-60); LDL 107 mg/dL (0-99); TRIGLYCERIDES 64 mg/dL (30-150)
[2018-05-27 07:54] LABS: THYROID STIMULATING HORMONE 25.594 uIU/mL (0.358-3.74)
[2018-05-27 08:00] VITALS: BP 100/59
[2018-05-27] MEDS: LEVOTHYROXINE SODIUM 125 MCG TABLET PO SCH (09:18)
[2018-05-27] MEDS: HYDROCODONE/APAP 5/325MG 1 EACH TABLET PO PRN ×2 (11:02→19:48)
--- NOTE | 2018-05-27 11:11 | NUR ---
GPS/RN-NOTES PATIENT REQUESTING PERCOCET FOR 7/10 LOWER BACK PAIN . PERCOCET 5/325MG P.O GIVEN PRN ORDER.
[2018-05-27] MEDS: VENLAFAXINE XR 75 MG CAP.SR.24H PO SCH (13:55)
--- NOTE | 2018-05-27 15:50 | NUR ---
GPS/RN-NOTES RECEIVED A [facility] REGARDING PATIENT MRSA NARES POSITIVE . DR. RECIO MADE AWARE WITH T.O ORDER OF BACTROBAN OINT BID .NOTED AND CARRIED OUT. PATIENT WAS PUT ON CONTACT ISOLATION.
[2018-05-27 16:00] VITALS: BP_SYST 114; BP_SYST 142; BP_DIAS 66; BP_DIAS 73
[2018-05-27] MEDS: QUETIAPINE FUMARATE 25 MG TABLET PO SCH ×2 (17:02→21:03)
[2018-05-27] MEDS: MUPIROCIN OINT 2% 22 GM TUBE SCH (17:02)
[2018-05-27 20:00] VITALS: BP 100/61
[2018-05-27] MEDS: ATORVASTATIN 10 MG TABLET PO SCH (21:02)
[2018-05-28 08:00] VITALS: BP 102/66
[2018-05-28] MEDS: LEVOTHYROXINE SODIUM 125 MCG TABLET PO SCH (08:03)
[2018-05-28] MEDS: QUETIAPINE FUMARATE 25 MG TABLET PO SCH ×6 (08:03→21:42)
[2018-05-28] MEDS: HYDROCODONE/APAP 5/325MG 1 EACH TABLET PO PRN ×2 (08:04→16:11)
[2018-05-28] MEDS: MUPIROCIN OINT 2% 22 GM TUBE SCH ×2 (08:07→16:18)
--- NOTE | 2018-05-28 09:31 | NUR ---
INITIAL DISCHARGE PLAN: Patient needs placement. Pt stated that she wants to be discharged to a SNF. SW will help form a safe and proper discharge in collaboration with MD.
[2018-05-28] MEDS: VENLAFAXINE XR 75 MG CAP.SR.24H PO SCH (12:31)
[2018-05-28 16:00] VITALS: BP 118/64
--- NOTE | 2018-05-28 16:12 | NUR ---
PATIENT REFUSED SEROQUEL, EXPLAINED RISKS AND BENEFITS PATIENT STILL REFUSED. MEDICATION WASTED.
[2018-05-28] MEDS: ENSURE ENLIVE 237 ML LIQUID (VANILLA) PO SCH (17:26)
--- NOTE | 2018-05-28 17:27 | NUR ---
PATIENT CAME UP TO ME AND ASKING FOR THE SEROQUEL, SHE STATED SHE FEELS "JITTERY" AND NEEDS THE SEROQUEL.
[2018-05-28 20:00] VITALS: BP 105/64
[2018-05-28] MEDS: ATORVASTATIN 10 MG TABLET PO SCH (21:42)
[2018-05-28] MEDS: LORAZEPAM 0.5 MG TABLET PO PRN (21:44)
[2018-05-29] MEDS: HYDROCODONE/APAP 5/325MG 1 EACH TABLET PO PRN (05:32)
[2018-05-29 08:00] VITALS: BP 102/68
[2018-05-29] MEDS: MUPIROCIN OINT 2% 22 GM TUBE SCH ×2 (08:46→16:00)
[2018-05-29] MEDS: ENSURE ENLIVE 237 ML LIQUID (VANILLA) PO SCH ×3 (08:46→16:00)
[2018-05-29] MEDS: LEVOTHYROXINE SODIUM 125 MCG TABLET PO SCH (08:46)
[2018-05-29] MEDS: QUETIAPINE FUMARATE 25 MG TABLET PO SCH ×3 (08:48→21:09)
[2018-05-29] MEDS: oxyCODONE/APAP (5/325 MG) 1 UDTAB TABLET PO PRN ×2 (11:32→19:28)
--- NOTE | 2018-05-29 11:45 | NUR ---
PATIENT WAS COMPLAINING OF 9/[address] RECIO TALKED TO THE PATIENT AND WAS AWARE. MD ORDERED PERCOCET EVERY 8 HOURS PRN AND DC'D THE NORCO. MEDICATION WAS ADMINISTERED TO THE PATIENT. WILL REASSESS FOR EFFECTIVENESS.
[2018-05-29] MEDS: VENLAFAXINE XR 75 MG CAP.SR.24H PO SCH (12:27)
[2018-05-29 16:00] VITALS: BP 104/57
--- NOTE | 2018-05-29 19:30 | NUR ---
C/O BACK PAIN, 8/10 ON PAIN SCALE, PERCOCET 5/325, 2 TABS PO GIVEN.
[2018-05-29 20:39] VITALS: BP 109/69
[2018-05-29] MEDS: ATORVASTATIN 10 MG TABLET PO SCH (21:08)
[2018-05-29] MEDS: ACETAMINOPHEN 325 MG TABLET PO PRN (22:36)
[2018-05-29] MEDS: LORAZEPAM 0.5 MG TABLET PO PRN (22:36)
--- NOTE | 2018-05-29 22:37 | NUR ---
Ativan 0.5 mg tab po given for anxiety
[2018-05-30 08:00] VITALS: BP 105/69
[2018-05-30] MEDS: ENSURE ENLIVE 237 ML LIQUID (VANILLA) PO SCH ×3 (09:00→17:00)
[2018-05-30] MEDS: MUPIROCIN OINT 2% 22 GM TUBE SCH ×2 (09:50→17:00)
[2018-05-30] MEDS: QUETIAPINE FUMARATE 25 MG TABLET PO SCH ×3 (09:51→21:12)
[2018-05-30] MEDS: LEVOTHYROXINE SODIUM 125 MCG TABLET PO SCH (09:53)
[2018-05-30] MEDS: oxyCODONE/APAP (5/325 MG) 1 UDTAB TABLET PO PRN ×3 (09:53→17:10)
[2018-05-30] MEDS: VENLAFAXINE XR 75 MG CAP.SR.24H PO SCH (12:26)
[2018-05-30 16:00] VITALS: BP 100/61
[2018-05-30 20:00] VITALS: BP 112/60
[2018-05-30 20:28] VITALS: BP 112/60
[2018-05-30] MEDS: ATORVASTATIN 10 MG TABLET PO SCH (21:12)
[2018-05-31] MEDS: oxyCODONE/APAP (5/325 MG) 1 UDTAB TABLET PO PRN ×4 (04:03→22:28)
[2018-05-31 08:00] VITALS: BP 103/53
[2018-05-31] MEDS: LEVOTHYROXINE SODIUM 125 MCG TABLET PO SCH (08:56)
[2018-05-31] MEDS: ENSURE ENLIVE 237 ML LIQUID (VANILLA) PO SCH ×3 (08:57→16:30)
[2018-05-31] MEDS: QUETIAPINE FUMARATE 25 MG TABLET PO SCH ×3 (08:57→21:51)
[2018-05-31] MEDS: MUPIROCIN OINT 2% 22 GM TUBE SCH ×2 (09:00→16:30)
--- NOTE | 2018-05-31 10:06 | NUR ---
RN NOTES ADMINISTERED PERCOCET 2 TABS PER PATIENT REQUEST FOR LOWER BACK PAIN 11/30, BP -105/60, P-73, CONTINUED MONITORING.
[2018-05-31] MEDS: VENLAFAXINE XR 75 MG CAP.SR.24H PO SCH (15:30)
[2018-05-31] MEDS: LORAZEPAM 0.5 MG TABLET PO PRN (15:36)
--- NOTE | 2018-05-31 15:36 | NUR ---
RN NOTES ADMINISTERED ATIVAN 0.5 MG PO PRN FOR ANXIETY PER PATIENT REQUEST, V/S TAKEN STABLE, CONTINUED MONITORING.
[2018-05-31 16:00] VITALS: BP 122/70
--- NOTE | 2018-05-31 16:28 | NUR ---
RN NOTES ADMINISTERED PERCOCET TWO TABS FOR LOWER BACK PAIN 11/30 PER PATIENT REQUEST, V/S TAKEN BP-122/77, P-76, CONTINUED MONITORING.
[2018-05-31 20:35] VITALS: BP 114/68
[2018-05-31] MEDS: ATORVASTATIN 10 MG TABLET PO SCH (21:51)
--- NOTE | 2018-05-31 22:28 | NUR ---
RN NOTES Patient c/o of back pain, 10/30. Percocet two tabs given as ordered.
[2018-06-01] MEDS: oxyCODONE/APAP (5/325 MG) 1 UDTAB TABLET PO PRN (06:16)
--- NOTE | 2018-06-01 06:17 | NUR ---
RN NOTES ADMINISTERED PERCOCET TWO TABS FOR LOWER BACK PAIN 10/30 PER PATIENT REQUEST,WILL CONTINUE TO MONITOR.
[2018-06-01 08:00] VITALS: BP 101/58
[2018-06-01] MEDS: QUETIAPINE FUMARATE 25 MG TABLET PO SCH (08:29)
[2018-06-01] MEDS: LEVOTHYROXINE SODIUM 125 MCG TABLET PO SCH (08:29)
[2018-06-01] MEDS: ENSURE ENLIVE 237 ML LIQUID (VANILLA) PO SCH ×2 (08:30→12:16)
[2018-06-01] MEDS: MUPIROCIN OINT 2% 22 GM TUBE SCH (08:31)
[2018-06-01] MEDS: VENLAFAXINE XR 75 MG CAP.SR.24H PO SCH (12:16)
--- NOTE | 2018-06-01 14:01 | NUR ---
DARRION faxed SNF referral to CJ, medical office coordinator at [facility] for review.
--- NOTE | 2018-06-01 14:02 | NUR ---
DISCHARGE NOTE: Pt will be discharged at 2:30pm via [facility] ambulance trip #[phone] to [facility] Address: [address] [place] [address] . Pts has no family to notify. Pts mood was anxious and euthymic with congruent affect. Pt denied visual/auditory hallucinations and denied suicidal/homicidal ideations. For smoking cessation, patient was referred to the [employer] and [employer] [id number]. Pt will also participate in a telephone meeting with [employer] [phone] on Friday June 01, 2018 at 8:00am. Pt will be under the care of Draw Bench Operator: Dr Rosario [address]: [address] [facility] [address] [address] [phone] and Psychiatrist: Dr. Mayda Pedraza [address] [facility] [address], [place] [address] [phone]. The multidisciplinary exitcare form was done, printed, signed, and given to the patient.
--- NOTE | 2018-06-01 14:25 | NUR ---
GPS/RN-NOTES PATIENT DISCHARGE TO [facility] TODAY. DR. CLEVELAND AND DR. RIVERA AWARE AND AGREES WITH ORDERS. REPORT WAS GIVEN TO [facility] ( RN FACILITY). PATIENT DID NOT VERBALIZE SI/HI,DENIES VISUAL AUDITORY HALLUCINATIONS AT THE TIME OF DISCHARGE. PATIENT LEFT THE UNIT AMBULATORY WITH STEADY GAIT, NO ACUTE DISTRESS NOTED WITH ALL BELONGINGS INCLUDING OWN X1 LAP TOP. PATIENT REFUSED FULL BODY ASSESSMENT PRIOR TO DISCHARGE. NO FAMILY TO NOTIFY ON THE DISCHARGE.
== END 2018-06-01 14:25 | DRG 885 ==
LOC: ER 11:29 → GPS 15:13
PROVIDERS: ADMIT Psychiatry & Neurology Psychosomatic Medicine; ATTEND Psychiatry & Neurology Psychosomatic Medicine
DX: F32.3 Major depressive disorder, single episode, severe with psychotic features (principal); R45.851 Suicidal ideations; E44.1 Mild protein-calorie malnutrition; Z68.1 Body mass index [BMI] 19.9 or less, adult; E78.5 Hyperlipidemia, unspecified; E03.9 Hypothyroidism, unspecified; F43.10 Post-traumatic stress disorder, unspecified; F17.210 Nicotine dependence, cigarettes, uncomplicated; Z59.0 Homelessness
CPT/HCPCS: 36415; 80048-TC; 80053-TC; 80061-TC; 80076-TC; 82962-TC; 84439-TC; 84443-TC; 85025-TC; 87081-TC; G0480

== ENCOUNTER → 2018-07-13 | Outpatient (CLI) | payer MEDICARE ==
[~2018-07-13] MED LIST changes: -ONDA4TAB11 PO
== END ==
LOC: MSC 15:15
PROVIDERS: ATTEND Anesthesiology
DX: M54.16 Radiculopathy, lumbar region (principal); M62.830 Muscle spasm of back; G89.4 Chronic pain syndrome; M40.299 Other kyphosis, site unspecified; M79.605 Pain in left leg; Z79.891 Long term (current) use of opiate analgesic; Z79.899 Other long term (current) drug therapy

== ENCOUNTER → 2018-08-03 | Outpatient (CLI) | payer MEDICARE | LOC: MSC 15:00 | PROVIDERS: ATTEND Anesthesiology | DX: M54.16 Radiculopathy, lumbar region (principal); M62.830 Muscle spasm of back; M40.299 Other kyphosis, site unspecified; G89.4 Chronic pain syndrome; M79.669 Pain in unspecified lower leg; Z79.891 Long term (current) use of opiate analgesic; Z79.899 Other long term (current) drug therapy ==

== ENCOUNTER 2018-08-31 12:31 | Outpatient (CLI) | payer MEDICARE | END 2018-08-31 23:59 | LOC: MSC 12:31 | PROVIDERS: ATTEND Anesthesiology | DX: G89.4 Chronic pain syndrome (principal); M54.5 Low back pain; M54.16 Radiculopathy, lumbar region; M79.669 Pain in unspecified lower leg; M40.299 Other kyphosis, site unspecified; Z79.891 Long term (current) use of opiate analgesic; Z79.899 Other long term (current) drug therapy ==

== ENCOUNTER 2018-10-13 20:26 | Inpatient (IN) | payer MEDICARE ==
[~2018-10-13] VITALS: Ht 162.6 cm; Wt 46.3 kg
--- NOTE | 2018-10-13 20:30 | NUR ---
TO BED 1 BIB EMS C/O S/P UNWITNESSED MECHANICAL GLF,FOLLOWED BY SYNCOPE EPISODE X5HR CHAIN TENDER, C/O WALDRON AND BACK PAIN. PT AAOX3 NO ACUTE DISTRESS NOTED, RESP EVEN AND UNLABORED. PLACE PT ON CARDIAC MONITORING, CONTINUOUS POX. PUPILS PERRLA, PT ABLE TO MOVE ALL EXTREMITIES WELL WITH BILATERAL EQUAL COORDINATOR OF LIBRARY SERVICES. PENDING ER MD BAIRD.
--- NOTE | 2018-10-13 20:51 | NUR ---
ER MD AT BEDSIDE TO EVAL PT WITH ORDERS RECEIVED. WILL CARRY OUT ORDERS.
[2018-10-13 21:21] LABS: BASOPHILS # (AUTO) 0.1 /CMM (0.0-0.2); BASOPHILS % (AUTO) 0.9 % (0.0-2.0); EOSINOPHILS % (AUTO) 0.4 % (0.0-6.0); HEMATOCRIT 38 % (33-45); HEMOGLOBIN 12.8 g/dL (11.5-14.8); LYMPHOCYTES # (AUTO) 1.5 /CMM (0.8-4.8); LYMPHOCYTES % (AUTO) 15.4 % (20.0-44.0); MEAN CORPUSCULAR HGB CONC 34 g/dl (31.0-36.0); MEAN CORPUSCULAR VOLUME 97 fL (82-100); MONOCYTES # (AUTO) 0.9 /CMM (0.1-1.30); MONOCYTES % (AUTO) 9.6 % (2.0-12.0); NEUTROPHILS % (AUTO) 73.7 % (43.0-81.0); PLATELET COUNT (AUTO) 372 /CMM (150-450); RED BLOOD CELL COUNT(AUTO) 3.92 MIL/uL (4.0-5.2); WHITE BLOOD COUNT (AUTO) 9.5 K/uL (4.3-11.0)
--- NOTE | 2018-10-13 21:25 | NUR ---
ADMIT 117-1 TELE
[2018-10-13 21:29] LABS: CALCIUM, SERUM 9.2 mg/dL (8.5-10.1); CARBON DIOXIDE 28 mmol/L (21-32); CHLORIDE 106 mmol/L (98-107); CREATININE 0.7 mg/dL (0.6-1.3); GLUCOSE 90 mg/dL (74-106); POTASSIUM 3.9 mmol/L (3.5-5.1); SODIUM SERUM 140 mmol/L (136-145); UREA NITROGEN, BLOOD 14 mg/dL (7-18)
--- NOTE | 2018-10-13 21:32 | NUR ---
PT TRANSPORTED TO RADIOLOGY FOR CT.
--- NOTE | 2018-10-13 21:44 | NUR ---
PT BACK FROM RADIOLOGY. PENDING CT RESULT.
--- NOTE | 2018-10-13 21:51 | NUR ---
CALLED ARTHUR, ARTEMIO CORONEL PAGED
--- NOTE | 2018-10-13 22:31 | NUR ---
ER SPOKE TO ARTEMIO CORONEL DNP REGARDING PT ADMISSION.
--- NOTE | 2018-10-13 22:43 | NUR ---
REPORT CALLED TO SALES SUPERINTENDENTMORGAN MUNIZ. WILL TRANSPORT PT VIA [facility].
[2018-10-13 23:05] VITALS: BP 133/75
[2018-10-13] MEDS: IV NS 0.9% 1,000 ML IV PRN (23:25)
[2018-10-13] MEDS: oxyCODONE IR immediate release 5 MG PO PRN (23:26)
[2018-10-13] MEDS ORDERED: Z GUARD REMEDY 2 OZ OINT TP PRN (23:30)
[2018-10-13] MEDS ORDERED: ACETAMINOPHEN 325 MG TABLET PO PRN (23:30)
[2018-10-13] MEDS ORDERED: ZOLPIDEM TARTRATE 5 MG TABLET PO PRN (23:30)
--- NOTE | 2018-10-13 23:48 | NUR ---
WOUND CARE TECHNICIAN NOTES RECEIVED PT FROM ER NURSE. PT A/O X4 ON RA NO RESPIRATORY DISTRESS NOTED. ON TELE MONITOR SR. IV ACCESS PATENT AND INTACT. COMPLAINTS OF BACK PAIN. HEAD OF BED ELEVATED. SIDE RAILS UP. CALL LIGHT WITHIN REACH. BED ALARM ON.PHYSICAL ASSESSMENT DONE. PICTURE TAKEN AND PLACED IN CHART.
[2018-10-14 03:22] LABS: BASOPHILS # (AUTO) 0.1 /CMM (0.0-0.2); BASOPHILS % (AUTO) 0.8 % (0.0-2.0); EOSINOPHILS % (AUTO) 0.5 % (0.0-6.0); HEMATOCRIT 35 % (33-45); LYMPHOCYTES # (AUTO) 1.4 /CMM (0.8-4.8); LYMPHOCYTES % (AUTO) 16.8 % (20.0-44.0); MEAN CORPUSCULAR HGB CONC 34 g/dl (31.0-36.0); MEAN CORPUSCULAR VOLUME 95 fL (82-100); MONOCYTES # (AUTO) 0.9 /CMM (0.1-1.30); MONOCYTES % (AUTO) 10.8 % (2.0-12.0); NEUTROPHILS % (AUTO) 71.1 % (43.0-81.0); PLATELET COUNT (AUTO) 323 /CMM (150-450); WHITE BLOOD COUNT (AUTO) 8.5 K/uL (4.3-11.0)
[2018-10-14 03:35] LABS: ALANINE AMINOTRANSFERASE 13 U/L (12-78); ALBUMIN 2.9 g/dL (3.4-5.0); ALKALINE PHOSPHATASE 108 U/L (46-116); ASPARTATE AMINOTRANSFERASE 10 U/L (15-37); BILIRUBIN,TOTAL 0.1 mg/dL (0.2-1.0); CALCIUM, SERUM 8.3 mg/dL (8.5-10.1); CARBON DIOXIDE 25 mmol/L (21-32); CHLORIDE 105 mmol/L (98-107); CREATININE 0.7 mg/dL (0.6-1.3); GLUCOSE 113 mg/dL (74-106); MAGNESIUM 1.9 mg/dL (1.8-2.4); PHOSPHORUS 3.4 mg/dL (2.5-4.9); POTASSIUM 3.4 mmol/L (3.5-5.1); SODIUM SERUM 139 mmol/L (136-145); TOTAL PROTEIN, SERUM 5.9 g/dL (6.4-8.2); UREA NITROGEN, BLOOD 13 mg/dL (7-18)
[2018-10-14 04:00] VITALS: BP 106/64
[2018-10-14 04:01] LABS: CHOLESTEROL 171 mg/dL (<200); HDL CHOLESTEROL 60 mg/dL (40-60); LDL 93 mg/dL (0-99); THYROID STIMULATING HORMONE 29.147 uIU/mL (0.358-3.74); TRIGLYCERIDES 104 mg/dL (30-150)
[2018-10-14] MEDS ORDERED: POTASSIUM CHLORIDE 20 MEQ TAB.PRT.SR PO ONE (06:00)
[2018-10-14] MEDS: ONDANSETRON HCL/PF 4 MG/2 ML VIAL IVP PRN ×2 (06:04→17:52)
[2018-10-14] MEDS: oxyCODONE IR immediate release 5 MG PO PRN ×3 (06:05→18:21)
--- NOTE | 2018-10-14 07:10 | NUR ---
DATA WAREHOUSE CONSULTANT OPENING NOTES RECEIVED PT LYING ON BED,ALERT/ORIENTED X4.ON TELE HR IS 71 WITH SR.ON ROOM AIR,SATURATING WELL.NO SOB AND ACUTE DISTRESS NOTED.CAN AMBULATE WELL WITH ONE PERSON ASSISTANCE.IV LINE IS ON RIGHT WRIST G18 WITH 0.9%NS @75CC/HR AND ON RIGHT AC G18,SITE IS CLEAN,DRY AND INTACT.NO INFILTRATION NOTED.BED IS IN LOW POSITION AND LOCKED,CALL LIGHT IS WITHIN REACH.WILL CONTINUE TO MONITOR THE PT CLOSELY.
--- NOTE | 2018-10-14 07:17 | NUR ---
MACHINE OPERATOR REPLANTER NOTES NO ACUTE CHANGES NOTED DURING THE SHIFT. PROVIDED COMFORT AND SAFETY. WILL ENDORSE TO THE AM NURSE FOR CONTINUITY OF CARE.
[2018-10-14] MEDS ORDERED: LEVOTHYROXINE SODIUM 125 MCG TABLET PO SCH (07:30)
[2018-10-14 08:00] VITALS: BP_SYST 114; BP_SYST 117; BP_DIAS 65
--- NOTE | 2018-10-14 08:30 | NUR ---
CENTER HOLE REAMER NOTES PT WENT TO HAVE SMOKE AFTER SIGN THE CONSENT,PT TOLERATED WELL.
[2018-10-14] MEDS ORDERED: POTASSIUM CHLORIDE 20 MEQ TAB.PRT.SR PO SCH (11:00)
[2018-10-14] MEDS ORDERED: LEVOTHYROXINE SODIUM 25 MCG TABLET PO ONE (12:00)
[2018-10-14] MEDS ORDERED: NICOTINE PATCH (21MG) 21 MG PATCH.TD24 TD SCH (12:00)
[2018-10-14] MEDS: VENLAFAXINE XR 75 MG CAP.SR.24H PO SCH (12:32)
[2018-10-14 16:00] VITALS: BP_SYST 132; BP_DIAS 72; BP_DIAS 77
--- NOTE | 2018-10-14 16:29 | NUR ---
MS RN NOTES SHADOWGRAPH OPERATOR KAYLI VERBALLY ORDERED TO STOP NICOTINE PATCH ORDER SHE ALLERGIC TO THAT PER PT.NEW ORDERS NOTED AND CARRIED OUT.
[2018-10-14] MEDS ORDERED: PRAV40TA PO (17:12)
[2018-10-14] MEDS ORDERED: TRAZ-214 PO (17:12)
[2018-10-14] MEDS ORDERED: VENL150C2 PO (17:12)
[2018-10-14] MEDS ORDERED: QUET200T PO (17:14)
[2018-10-14] MEDS ORDERED: QUET50TA PO (17:14)
[2018-10-14] MEDS: IV NS 0.9% 1,000 ML IV PRN (17:23)
[2018-10-14] MEDS: ENSURE ENLIVE CHOC 237 ML CAN PO SCH (17:35)
--- NOTE | 2018-10-14 18:21 | NUR ---
MS RN NOTES URINE IS COLLECTED AND SEND TO LAB.
--- NOTE | 2018-10-14 18:33 | NUR ---
MS RN CLOSING NOTES PT IS LYING ON BED.ALERT/ORIENTED X 4 WITH ANXIETY.ON ROOM AIR,TOLERATING WELL.NO SOB AND ACUTE DISTRESS NOTED.ALL DUE MEDS ARE GIVEN.IV LINE IS IN PLACE WITH IV FLUIDS RUNNING.SITE IS C/D/DI.RESPIRATION IS EVEN AND NONLABORED.ENDORSED TO GLASS CRUSHER RN FOR BOUBACAR.
--- NOTE | 2018-10-14 19:20 | NUR ---
RN NOTE RECEIVED PATIENT FROM DAWIT RN, PATIENT IS AWAKE/ALERT, ORIENTED X 3, NO DIZZINESS NOTED, INSTRUCTED PATIENT TO CALL FOR ASSISTANCE TO USE BATHROOM DUE TO HISTORY OF SYNCOPE EPISODE, PATIENT STATED THAT SHE DOES NOT FEEL DIZZY ANYMORE BUT IF SHE HAS ANY SYMPTOMS OF DIZZINESS, SHE WILL LET NURSE KNOW, ALL SAFETY MEASURES TAKEN, NO RESPIRATORY DISTRESS NOTED, WILL CONTINUE TO MONITOR PATIENT
[2018-10-14 20:00] VITALS: BP_SYST 119; BP_SYST 120; BP_SYST 122; BP_DIAS 75; BP_DIAS 77; BP_DIAS 78
[2018-10-14 20:58] LABS: APPEARANCE,URINE CLEAR (CLEAR); BILIRUBIN,URINE NEGATIVE (NEGATIVE); BLOOD, URINE TRACE-INTA Ery/uL (NEGATIVE); KETONES,URINE NEGATIVE (NEGATIVE); LEUKOCYTE ESTERASE ,URINE NEGATIVE (NEGATIVE); NITRITE, URINE NEGATIVE (NEGATIVE); PH,URINE 6.5 (5.0-8.0); PROTEIN,URINE NEGATIVE (NEGATIVE); UGLUCOSE NEGATIVE (NEGATIVE); UROBILINOGEN,URINE 0.2 EU/dL (0.2)
[2018-10-14 21:00] LABS: COLOR,URINE Light yellow (YELLOW)
[2018-10-14 21:15] LABS: BACTERIA,URINE None seen /HPF (None Seen); RBC,URINE 0-2 /HPF (0-2); SQUAMOUS EPITHELIAL CELL,UR Rare /HPF (None Seen); WBC,URINE 0-2 /HPF (0-3)
[2018-10-14] MEDS ORDERED: ATORVASTATIN 40 MG TABLET PO SCH (22:00)
[2018-10-15] MEDS: oxyCODONE IR immediate release 5 MG PO PRN ×3 (00:19→12:27)
--- NOTE | 2018-10-15 00:21 | NUR ---
RN NOTE BACK PAIN 11/30, ADMINISTERED PAIN MEDICATION ORDERED, BP 132/76
[2018-10-15 04:00] VITALS: BP 112/64
[2018-10-15] MEDS: IV NS 0.9% 1,000 ML IV PRN (05:46)
--- NOTE | 2018-10-15 06:36 | NUR ---
RN NOTE NO CHANGES DURING MY SHIFT NOTED, NO DISTRESS NOTED, PAIN IS WELL CONTROLLED WITH PAIN MEDICATION, ALL SAFETY MEASURES TAKEN, NO SYNCOPE EPISODES NOTED
[2018-10-15 07:03] LABS: BASOPHILS % (AUTO) 0.5 % (0.0-2.0); EOSINOPHILS % (AUTO) 1.2 % (0.0-6.0); HEMATOCRIT 36 % (33-45); HEMOGLOBIN 12.1 g/dL (11.5-14.8); LYMPHOCYTES # (AUTO) 1.4 /CMM (0.8-4.8); LYMPHOCYTES % (AUTO) 25.9 % (20.0-44.0); MEAN CORPUSCULAR HGB CONC 34 g/dl (31.0-36.0); MEAN CORPUSCULAR VOLUME 95 fL (82-100); MONOCYTES # (AUTO) 0.7 /CMM (0.1-1.30); MONOCYTES % (AUTO) 13.5 % (2.0-12.0); NEUTROPHILS # (AUTO) 3.2 /CMM (1.8-8.9); NEUTROPHILS % (AUTO) 58.9 % (43.0-81.0); PLATELET COUNT (AUTO) 292 /CMM (150-450); RED BLOOD CELL COUNT(AUTO) 3.77 MIL/uL (4.0-5.2); WHITE BLOOD COUNT (AUTO) 5.4 K/uL (4.3-11.0)
[2018-10-15 07:13] LABS: CALCIUM, SERUM 8.1 mg/dL (8.5-10.1); CARBON DIOXIDE 24 mmol/L (21-32); CHLORIDE 107 mmol/L (98-107); CREATININE 0.5 mg/dL (0.6-1.3); GLUCOSE 104 mg/dL (74-106); SODIUM SERUM 139 mmol/L (136-145); UREA NITROGEN, BLOOD 7 mg/dL (7-18)
[2018-10-15] MEDS ORDERED: LEVOTHYROXINE SODIUM 75 MCG TABLET PO SCH (07:30)
[2018-10-15] MEDS ORDERED: LEVOTHYROXINE SODIUM 125 MCG TABLET PO SCH (07:30)
--- NOTE | 2018-10-15 07:55 | NUR ---
WOUND CARE CONSULT: PT PRESENTS WITH VERY ITCHY RASH/LESION TO BILATERAL LOWER EXTREMITIES WITH REDNESS TO RT DORSAL FOOT AND SCRATCH LAMB, PRESENT ON ADMISSION. RECOMMEND DPM CONSULT. DR VILLAREAL NOTIFIED OF CONSULT REQUEST. PT IS INDEPENDENT WITH BED MOBILITY AND IS CONTINENT. WILL SEE PRN. DEFER TO DPM FOR LOWER EXTREMITIES.
[2018-10-15 08:00] VITALS: BP_SYST 111; BP_SYST 118; BP_DIAS 69; BP_DIAS 71
[2018-10-15] MEDS: ENSURE ENLIVE CHOC 237 ML CAN PO SCH ×2 (08:00→12:00)
--- NOTE | 2018-10-15 08:01 | NUR ---
SEE VITALS FOR ORTHOSTATIC BLOOD PRESSURE
[2018-10-15] MEDS: VENLAFAXINE XR 75 MG CAP.SR.24H PO SCH (08:02)
[2018-10-15 08:10] VITALS: BP_SYST 107; BP_SYST 112; BP_SYST 95; BP_DIAS 53; BP_DIAS 54; BP_DIAS 56
--- NOTE | 2018-10-15 14:24 | NUR ---
RN D/C NOTE RECEIVED DC ORDER TO HOME WITH HOME HEALTH + FOLLOW UP WITH PCP IN ONE WEEK. PATIENT IN STABLE CONDITION. DENIES DIZZINESS WHEN AMBULATING. BP 112/80, HR 70 PRIOR TO DISCHARGE. PRESCRIPTION PROVIDED TO PATIENT. INFORMATION RELATED TO MEDICATION SIDE EFFECTS, STANDARD DC EDUCATION (INCLUDING HIGH PROTEIN/HIGH CALORIE DIET) AND EMERGENCY SYMPTOMS PROVIDED. WOUND PICTURES TAKEN, PATIENT STATES SHE WANTS TO FOLLOW UP WITH HER OWN FOOT DOCTOR. IV CATHETER REMOVED INTACT, NO S/S BLEEDING, DRESSING WITH PAPER TAPE APPLIED. BELONGINGS WITH PATIENT. TAP CARD GIVEN, PATIENT AMBULATED OUT OF UNIT
== END 2018-10-15 14:11 | disposition home health service (06) | DRG 74 ==
LOC: ER 20:28 → TELE1 21:37 → MEDSG1 10-14 10:22
PROVIDERS: ADMIT Nurse Practitioner Acute Care; ATTEND Nurse Practitioner Acute Care
DX: G90.8 Other disorders of autonomic nervous system (principal); E44.0 Moderate protein-calorie malnutrition; Z68.1 Body mass index [BMI] 19.9 or less, adult; E03.9 Hypothyroidism, unspecified; F17.210 Nicotine dependence, cigarettes, uncomplicated; F32.9 Major depressive disorder, single episode, unspecified; I25.10 Atherosclerotic heart disease of native coronary artery without angina pectoris; Z59.0 Homelessness; Z86.73 Personal history of transient ischemic attack (TIA), and cerebral infarction without residual deficits; G89.29 Other chronic pain; M54.5 Low back pain; F29 Unspecified psychosis not due to a substance or known physiological condition; E87.6 Hypokalemia; Z91.14 Patient's other noncompliance with medication regimen; Z85.820 Personal history of malignant melanoma of skin; Z79.891 Long term (current) use of opiate analgesic; W18.30XA Fall on same level, unspecified, initial encounter; Y92.89 Other specified places as the place of occurrence of the external cause; F43.10 Post-traumatic stress disorder, unspecified; E78.5 Hyperlipidemia, unspecified; Z88.2 Allergy status to sulfonamides
CPT/HCPCS: 36415; 70450-TC; 71045-TC; 72070-TC; 72100-TC; 72125-TC; 80048-TC; 80053-TC; 80061-TC; 81000-TC; 83735-TC; 84100-TC; 84439-TC; 84443-TC; 84484-TC; 85025-TC; 87081-TC; 93307-TC; 97116-TC; 97530-TC; G0378; J2405; J7030

== ENCOUNTER 2018-12-02 13:19 | Emergency (ER) | payer MEDICARE, MEDICAID ==
[~2018-12-02] VITALS: Ht 162.6 cm; Wt 50.3 kg
[~2018-12-02 13:19] MED LIST changes: +PRAV40TA PO; -PRAV40TA3 PO; +QUET200T PO; +QUET50TA PO; +TRAZ-214 PO; +VENL150C2 PO
--- NOTE | 2018-12-02 13:30 | NUR ---
MELY 860 FROM [place] C/O BACK PAIN 12/30. PATIENT A/OX4, BREATHING EVEN AND UNLABORED, NO SOB NOTED. NEEDS ATTENDED. ATTACHED TO THE MONITOR, CHANGED INTO GOWN.
[2018-12-02] MEDS ORDERED: oxyCODONE/APAP (5/325 MG) 1 UDTAB TABLET PO ONE ×2 (14:00→15:00)
[2018-12-02] MEDS ORDERED: oxyCODONE/APAP (5/325 MG) 1 UDTAB TABLET ONE ×2 (14:05→14:45)
--- NOTE | 2018-12-02 14:07 | NUR ---
PATIENT DENIES BEING ALLERGIC TO CODEINE. PER PATIENT "I TAKE PERCOCET"
[2018-12-02 14:12] LABS: BASOPHILS % (AUTO) 0.4 % (0.0-2.0); HEMATOCRIT 35 % (33-45); HEMOGLOBIN 11.9 g/dL (11.5-14.8); LYMPHOCYTES # (AUTO) 0.8 /CMM (0.8-4.8); LYMPHOCYTES % (AUTO) 9.9 % (20.0-44.0); MEAN CORPUSCULAR HGB CONC 34 g/dl (31.0-36.0); MEAN CORPUSCULAR VOLUME 99 fL (82-100); MONOCYTES # (AUTO) 0.6 /CMM (0.1-1.30); MONOCYTES % (AUTO) 7.3 % (2.0-12.0); NEUTROPHILS # (AUTO) 6.2 /CMM (1.8-8.9); NEUTROPHILS % (AUTO) 82.4 % (43.0-81.0); PLATELET COUNT (AUTO) 347 /CMM (150-450); RED BLOOD CELL COUNT(AUTO) 3.57 MIL/uL (4.0-5.2); WHITE BLOOD COUNT (AUTO) 7.6 K/uL (4.3-11.0)
[2018-12-02 14:22] LABS: CALCIUM, SERUM 8.8 mg/dL (8.5-10.1); CREATININE 0.6 mg/dL (0.6-1.3); POTASSIUM 4.2 mmol/L (3.5-5.1)
[2018-12-02 15:17] LABS: APPEARANCE,URINE Clear (CLEAR); BILIRUBIN,URINE Negative (NEGATIVE); COLOR,URINE Yellow (YELLOW); KETONES,URINE 15 (NEGATIVE); LEUKOCYTE ESTERASE ,URINE Negative (NEGATIVE); NITRITE, URINE Negative (NEGATIVE); PH,URINE 7.5 (5.0-8.0); PROTEIN,URINE Negative (NEGATIVE); UGLUCOSE Negative (NEGATIVE); UROBILINOGEN,URINE 0.2 EU/dL (0.2)
[2018-12-02 15:19] LABS: BLOOD, URINE NEGATIVE Ery/uL (NEGATIVE)
[2018-12-02 15:56] LABS: BACTERIA,URINE None seen /HPF (None Seen); RBC,URINE 0-2 /HPF (0-2); SQUAMOUS EPITHELIAL CELL,UR Few /HPF (None Seen); WBC,URINE 0-2 /HPF (0-3)
--- NOTE | 2018-12-02 16:00 | NUR ---
PATIENT VERBALIZED SHE'S FEELING SUICIDAL, HER PLAN IS TO "HANG HERSELF." PATIENT A/OX3, NO DISTRESS NOTED. DR. CRESPO MADE AWARE.
--- NOTE | 2018-12-02 16:51 | NUR ---
ORDERED FOOD TRAY.
--- NOTE | 2018-12-02 18:07 | NUR ---
PINKY CLINICIAN AT BEDSIDE FOR EVAL.
--- NOTE | 2018-12-02 19:39 | NUR ---
PATIENT ENDORSED TO [facility].
--- NOTE | 2018-12-02 20:10 | NUR ---
PT ACCEPTED AT [facility] ACCEPTING MD: DR. BHATT NUMBER FOR REPORT [phone] UNIT 2 ETA [id number], TRIP #[id number]
[2018-12-02 20:33] VITALS: BP 110/79
--- NOTE | 2018-12-02 20:34 | NUR ---
REPORT GIVEN TO EDMUNDO MORA AT [facility] FOR [facility]OU[facility]AC[facility]
--- NOTE | 2018-12-02 21:57 | NUR ---
[facility] B[facility]
== END 2018-12-02 22:23 | disposition short-term general hospital (02) ==
LOC: ER 13:24
DX: M54.5 Low back pain (principal); G89.29 Other chronic pain; R45.851 Suicidal ideations; E03.9 Hypothyroidism, unspecified; F17.200 Nicotine dependence, unspecified, uncomplicated; Z95.5 Presence of coronary angioplasty implant and graft; Z90.49 Acquired absence of other specified parts of digestive tract; Z90.710 Acquired absence of both cervix and uterus; Z90.89 Acquired absence of other organs; Z98.890 Other specified postprocedural states; Z88.5 Allergy status to narcotic agent; Z88.1 Allergy status to other antibiotic agents; Z88.2 Allergy status to sulfonamides; Z88.6 Allergy status to analgesic agent; Z88.8 Allergy status to other drugs, medicaments and biological substances; Z91.018 Allergy to other foods; Z91.048 Other nonmedicinal substance allergy status; Z88.4 Allergy status to anesthetic agent
CPT/HCPCS: 36415; 72128-TC; 72131-TC; 80048-TC; 80305; 81000-TC; 85025-TC; G0480

== ENCOUNTER 2022-05-14 11:25 | Emergency (ER) | payer MEDICARE, OTHER ==
[~2022-05-14] VITALS: Ht 154.9 cm; Wt 46.7 kg
[~2022-05-14 11:25] MED LIST changes: +ASPI-1169 PO; +LEVO250T59 PO; +PANT40VI PO; -PRAV40TA PO; +PRAV40TA3 PO; -QUET50TA PO; -TRAZ-214 PO; +TRAZ-257 PO
--- NOTE | 2022-05-14 11:40 | NUR ---
C/C DEPRESSION. A/O X 3
--- NOTE | 2022-05-14 11:47 | NUR ---
BLOOD SAMPLES OBTAINED
--- NOTE | 2022-05-14 11:47 | NUR ---
COVID SWAB OBTAINED
[2022-05-14 11:59] LABS: BASOPHILS % (AUTO) 0.3 % (0.0-2.0); EOSINOPHILS % (AUTO) 0.4 % (0.0-6.0); HEMATOCRIT 40 % (33-45); HEMOGLOBIN 13.2 g/dL (11.5-14.8); LYMPHOCYTES # (AUTO) 1.5 K/uL (0.8-4.8); LYMPHOCYTES % (AUTO) 18.4 % (20.0-44.0); MEAN CORPUSCULAR HGB CONC 33 g/dl (31.0-36.0); MEAN CORPUSCULAR VOLUME 99 fL (82-100); MONOCYTES # (AUTO) 0.9 K/uL (0.1-1.30); MONOCYTES % (AUTO) 10.8 % (2.0-12.0); NEUTROPHILS # (AUTO) 5.6 K/uL (1.8-8.9); NEUTROPHILS % (AUTO) 70.1 % (43.0-81.0); PLATELET COUNT (AUTO) 394 K/uL (150-450); RED BLOOD CELL COUNT(AUTO) 4.02 MIL/uL (4.0-5.2)
[2022-05-14] MEDS ORDERED: MAGN400O6 PO (12:27)
[2022-05-14] MEDS ORDERED: RISP2TAB5 PO (12:27)
[2022-05-14] MEDS ORDERED: SULF1TAB48 PO (12:27)
[2022-05-14] MEDS ORDERED: POLY15DR31 OP (12:27)
[2022-05-14] MEDS ORDERED: ACET325T53 PO (12:27)
[2022-05-14] MEDS ORDERED: MAG30ORA PO (12:27)
[2022-05-14] MEDS ORDERED: OXCA300T4 PO (12:27)
[2022-05-14] MEDS ORDERED: AMAN100T PO (12:27)
[2022-05-14] MEDS ORDERED: NA P133E RC (12:27)
[2022-05-14] MEDS ORDERED: ACET-2605 PO (12:27)
[2022-05-14] MEDS ORDERED: FLUV25TA3 PO (12:27)
[2022-05-14] MEDS ORDERED: CLON0.5T PO (12:27)
--- NOTE | 2022-05-14 12:30 | NUR ---
URINE SAMPLES OBTAINED
[2022-05-14 12:42] LABS: CALCIUM, SERUM 9.6 mg/dL (8.5-10.1); CARBON DIOXIDE 28 mmol/L (21-32); CHLORIDE 101 mmol/L (98-107); CREATININE 0.7 mg/dL (0.6-1.3); GLUCOSE 93 mg/dL (74-106); POTASSIUM 4.1 mmol/L (3.5-5.1); SODIUM SERUM 133 mmol/L (136-145); UREA NITROGEN, BLOOD 10 mg/dL (7-18)
[2022-05-14 12:49] LABS: ACETAMINOPHEN < 10 ug/ml (10-30); ALANINE AMINOTRANSFERASE 15 U/L (12-78); ALCOHOL, BLOOD < 3 mg/dL (0-0); ALKALINE PHOSPHATASE 127 U/L (46-116); ASPARTATE AMINOTRANSFERASE 17 U/L (15-37); BILIRUBIN,DIRECT 0.1 mg/dL (0.0-0.2); BILIRUBIN,TOTAL 0.3 mg/dL (0.2-1.0); TOTAL PROTEIN, SERUM 7.9 g/dL (6.4-8.2)
[2022-05-14 13:06] LABS: BILIRUBIN,URINE NEGATIVE (NEGATIVE); COLOR,URINE YELLOW (YELLOW); LEUKOCYTE ESTERASE ,URINE 1+ (NEGATIVE); NITRITE, URINE NEGATIVE (NEGATIVE); PROTEIN,URINE NEGATIVE (NEGATIVE); UGLUCOSE NEGATIVE (NEGATIVE); UROBILINOGEN,URINE 0.2 EU/dL (0.2)
[2022-05-14 13:20] LABS: BACTERIA,URINE None seen /HPF (None Seen); RBC,URINE 0-2 /HPF (0-2); SQUAMOUS EPITHELIAL CELL,UR Few /HPF (None Seen); WBC,URINE 0-2 /HPF (0-3)
[2022-05-14] MEDS ORDERED: LEVO150T8 PO (14:09)
[2022-05-14] MEDS ORDERED: TRAZ-257 PO (14:09)
[2022-05-14] MEDS ORDERED: PRAV40TA3 PO (14:09)
[2022-05-14] MEDS ORDERED: OXYC-133 PO (14:09)
[2022-05-14] MEDS ORDERED: VENL150C2 PO (14:09)
[2022-05-14] MEDS ORDERED: QUET200T PO (14:09)
--- NOTE | 2022-05-14 14:23 | NUR ---
MURTAZA MENDOZA [phone]
--- NOTE | 2022-05-14 14:28 | NUR ---
Pt with no signs of distress, sleeping
--- NOTE | 2022-05-14 14:34 | NUR ---
LOLA CALLED WILL CONTACT DARRION CHEN.
--- NOTE | 2022-05-14 14:57 | NUR ---
SW Consult: SW requested consult for depression. SW met with patient and pt appeared cooperative and pleasant. Pt was alert and oriented x3 (self,place,situation). Pt stated that she was brought to the hospital because of her back pain and that she was diagnosed with "skin cancer". She reported that her primary doctor diagnosed her DrAnthony Saunders. She stated that she "fired her doctor". Pt did appear to be somewhat paranoid. Pt denied suicidal ideation and homicidal ideation. Pt denied visual/auditory hallucinations. She stated that she currently resides at a senior care (Independent living) located at [address] [place] [address]; [phone]. She stated she would want to return back. Pt was fixated on her medications as this newswriter was assessing. Pt does not have any supportive system. SW encouraged pt to visit her primary and psychiatrist for further evaluation and to contact her insurance to get referrals for therapist, oncologist, and a new primary doctor if needed. [facility]ION contacted pt's Independent Living and spoke with Woo Admin ([phone]) who stated that pt is welcomed back. SW asked if pt is dx with skin cancer and Woo stated that he is unsure and assumes that she is not. SW encouraged Woo to help her at the [facility] to contact her insurance to get resources through her insurance. DC PLAN: Pt will return back to her Independent Living located at [address] [place] [address]; ([phone]). 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 DARRION notified ER treatment team. DARRION provided pt resources for therapist: Treva Garcia Clinical Social Work/Therapist, PRODUCT SAFETY SPECIALIST , Marriage & Family Therapist in [address] [place] [address] Adair Moses , Shelbi Arreaga Marriage & Family Therapist Associate, [place], [facility] SW also encouraged pt to follow up with primary doctor. DARRION gave primary doctor resource: [facility] Where: [address], [address] [place], [place] [id number] Psychiatry referral: [facility] Where: [address], [place] [address] Operation Hours: MON - FRI 8:00 a.m. - 5:00 p.m.
[2022-05-14] MEDS ORDERED: oxyCODONE/APAP (5/325 MG) 1 UDTAB TABLET PO ONE (15:00)
[2022-05-14] MEDS ORDERED: oxyCODONE/APAP (5/325 MG) 1 UDTAB TABLET ONE (15:18)
--- NOTE | 2022-05-14 16:08 | NUR ---
SW Consult: SW requested consult for depression. SW met with patient and pt appeared cooperative and pleasant. Pt was alert and oriented x3 (self,place,situation). Pt stated that she was brought to the hospital because of her back pain and that she was diagnosed with "skin cancer". She reported that her primary doctor diagnosed her DrAnthony Saunders. She stated that she "fired her doctor". Pt did appear to be somewhat paranoid. Pt denied suicidal ideation and homicidal ideation. Pt denied visual/auditory hallucinations. She stated that she currently resides at a long-term (Independent living) located at [address] [place] [address]; [phone]. She stated she would want to return back. Pt was fixated on her medications as this law writer was assessing. Pt does not have any supportive system. SW encouraged pt to visit her primary and psychiatrist for further evaluation and to contact her insurance to get referrals for therapist, oncologist, and a new primary doctor if needed. [facility] contacted pt's Independent Living and spoke with Woo Admin ([phone]) who stated that pt is welcomed back. SW asked if pt is dx with skin cancer and Woo stated that he is unsure and assumes that she is not. SW encouraged Woo to help her at the [facility] to contact her insurance to get resources through her insurance. DC PLAN: Pt will return back to her Independent Living located at [address] [place] [address]; ([phone]). 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 DARRION notified ER treatment team. DARRION provided pt resources for therapist: Treva Garcia Clinical Social Work/Therapist, POWER SYSTEMS ENGINEER , Marriage & Family Therapist in [address] [place] [address] Adair Moses , Shelbi Arreaga Marriage & Family Therapist Associate, [facility], [facility] SW also encouraged pt to follow up with primary doctor. DARRION gave primary doctor resource: [facility] Where: [address], [address] [place], [place] [id number] Psychiatry referral: [facility] Where: [address], [place] [address] Operation Hours: MON - FRI 8:00 a.m. - 5:00 p.m.
--- NOTE | 2022-05-14 16:56 | NUR ---
CALLED [facility] FOR TRANSPORT [phone] Return back to her Independent Living located at [address] [place] [address]; ([phone]). 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 EARLIEST PICKUP IS 90 MINS LONNIE
--- NOTE | 2022-05-14 17:02 | NUR ---
CALLED [facility] FOR TRANSPORT [phone] Return back to her Independent Living located at [address] [place] [address]; ([phone]). 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 ETA 30 MINS PER CIRILO.
[2022-05-14 18:17] VITALS: BP 122/71
--- NOTE | 2022-05-14 18:17 | NUR ---
patient picked up by private ambulance in no distress going back to board and care.
== END 2022-05-14 18:17 | disposition home or self-care (01) ==
LOC: ER 11:42
DX: G89.29 Other chronic pain (principal); M54.50 Low back pain, unspecified; F32.A Depression, unspecified; E78.5 Hyperlipidemia, unspecified; E03.9 Hypothyroidism, unspecified; Z20.822 Contact with and (suspected) exposure to COVID-19; Z90.89 Acquired absence of other organs; Z90.49 Acquired absence of other specified parts of digestive tract; Z90.710 Acquired absence of both cervix and uterus; Z88.2 Allergy status to sulfonamides; Z91.013 Allergy to seafood; Z88.8 Allergy status to other drugs, medicaments and biological substances; Z79.899 Other long term (current) drug therapy
CPT/HCPCS: 99283; 85025; 80048; 87086; 80076; 81001; 36415; 87426; 80143; 80320; 80307; C9803; G0480

== ENCOUNTER 2022-12-08 09:56 | Inpatient (IN) | payer OTHER ==
[~2022-12-08] VITALS: Ht 154.9 cm; Wt 45.4 kg
[~2022-12-08 09:56] MED LIST changes: -ASPI-1169 PO; -LEVO125T8 PO; +LEVO150T8 PO; -LEVO250T59 PO; -PANT40VI PO
[2022-12-08] MEDS ORDERED: oxyCODONE/APAP (5/325 MG) 1 UDTAB TABLET ONE (10:15)
[2022-12-08] MEDS ORDERED: oxyCODONE/APAP (5/325 MG) 1 UDTAB TABLET PO ONE (10:30)
[2022-12-08] MEDS ORDERED: ASPI-1420 PO (10:52)
[2022-12-08] MEDS ORDERED: OMEP20CA15 PO (10:52)
[2022-12-08 11:07] LABS: ALANINE AMINOTRANSFERASE 19 U/L (12-78); ALBUMIN 3.5 g/dL (3.4-5.0); ALKALINE PHOSPHATASE 107 U/L (46-116); ASPARTATE AMINOTRANSFERASE 16 U/L (15-37); BILIRUBIN,DIRECT 0.1 mg/dL (0.0-0.2); BILIRUBIN,TOTAL 0.4 mg/dL (0.2-1.0); CALCIUM, SERUM 9.1 mg/dL (8.5-10.1); CARBON DIOXIDE 25 mmol/L (21-32); CHLORIDE 102 mmol/L (98-107); CREATININE 0.7 mg/dL (0.6-1.3); GLUCOSE 116 mg/dL (74-106); POTASSIUM 4.2 mmol/L (3.5-5.1); SODIUM SERUM 134 mmol/L (136-145); TOTAL PROTEIN, SERUM 6.9 g/dL (6.4-8.2); UREA NITROGEN, BLOOD 9 mg/dL (7-18)
[2022-12-08 11:25] LABS: BASOPHILS % (AUTO) 0.4 % (0.0-2.0); EOSINOPHILS % (AUTO) 0.1 % (0.0-6.0); HEMATOCRIT 40 % (33-45); HEMOGLOBIN 13.2 g/dL (11.5-14.8); LYMPHOCYTES # (AUTO) 0.8 K/uL (0.8-4.8); LYMPHOCYTES % (AUTO) 11.1 % (20.0-44.0); MEAN CORPUSCULAR HEMOGLOBIN 33 PG (26.0-33.0); MEAN CORPUSCULAR HGB CONC 33 g/dl (31.0-36.0); MEAN CORPUSCULAR VOLUME 98 fL (82-100); MONOCYTES # (AUTO) 0.6 K/uL (0.1-1.30); MONOCYTES % (AUTO) 8.8 % (2.0-12.0); NEUTROPHILS # (AUTO) 5.7 K/uL (1.8-8.9); NEUTROPHILS % (AUTO) 79.6 % (43.0-81.0); PLATELET COUNT (AUTO) 397 K/uL (150-450); RED BLOOD CELL COUNT(AUTO) 4.06 MIL/uL (4.0-5.2); RED CELL DISTRIBUTION WIDTH 13.6 % (11.5-15.0); WHITE BLOOD COUNT (AUTO) 7.2 K/uL (4.3-11.0)
[2022-12-08 11:30] LABS: ACETAMINOPHEN <10 ug/ml (10-30); ALCOHOL, BLOOD < 3 mg/dL (0-10)
[2022-12-08 11:48] LABS: AMPHETAMINE, URINE NEGATIVE (NEGATIVE); APPEARANCE,URINE CLEAR (CLEAR); BARBITURATE, URINE NEGATIVE (NEGATIVE); BENZODIAZEPINE, URINE NEGATIVE (NEGATIVE); BILIRUBIN,URINE NEGATIVE (NEGATIVE); BLOOD, URINE NEGATIVE Ery/uL (NEGATIVE); COCCAINE, URINE NEGATIVE (NEGATIVE); COLOR,URINE YELLOW (YELLOW); KETONES,URINE NEGATIVE (NEGATIVE); LEUKOCYTE ESTERASE ,URINE 1+ (NEGATIVE); NITRITE, URINE NEGATIVE (NEGATIVE); OPIATE, URINE NEGATIVE (NEGATIVE); PHENCYCLIDINE SCREEN,URINE NEGATIVE (NEGATIVE); PROTEIN,URINE NEGATIVE (NEGATIVE); UGLUCOSE NEGATIVE (NEGATIVE)
[2022-12-08 12:05] LABS: ADD URINE CULTURE YES; BACTERIA,URINE Moderate /HPF (None Seen); CANNABINOID, URINE POSITIVE (NEGATIVE); RBC,URINE 0-3 /HPF (0-2)
[2022-12-08 12:06] LABS: SQUAMOUS EPITHELIAL CELL,UR Few /HPF (None Seen)
[2022-12-08] MEDS ORDERED: MAGNESIUM HYDROXIDE 30 ML UDC PO PRN (17:30)
[2022-12-08] MEDS ORDERED: MAG HYDROX/AL HYDROX/SIMETH 30 ML UDC PO PRN (17:30)
[2022-12-08 17:39] VITALS: BP 101/52; TEMP 98.7; O2SAT 97
[2022-12-08] MEDS: oxyCODONE/APAP (5/325 MG) 1 UDTAB TABLET PO SCH (18:03)
[2022-12-08] MEDS: BLOOD SUGAR DIAGNOSTIC 1 EACH STRIP IN ONE ×3 (18:04→18:38)
[2022-12-08 20:16] VITALS: BP 113/69; TEMP 97.5; O2SAT 98
[2022-12-08] MEDS: LORAZEPAM 0.5 MG TABLET PO PRN (23:23)
[2022-12-09] MEDS: LORAZEPAM 0.5 MG TABLET PO PRN (05:05)
[2022-12-09 06:50] LABS: CHOLESTEROL 156 mg/dL (<200); HDL CHOLESTEROL 73 mg/dL (40-60); LDL 82 mg/dL (0-99); TRIGLYCERIDES 38 mg/dL (30-150)
[2022-12-09 07:22] LABS: ALANINE AMINOTRANSFERASE 29 U/L (12-78); ALBUMIN 3.4 g/dL (3.4-5.0); ALKALINE PHOSPHATASE 98 U/L (46-116); ASPARTATE AMINOTRANSFERASE 21 U/L (15-37); BILIRUBIN,TOTAL 0.3 mg/dL (0.2-1.0); CALCIUM, SERUM 9.2 mg/dL (8.5-10.1); CARBON DIOXIDE 25 mmol/L (21-32); CHLORIDE 101 mmol/L (98-107); CREATININE 0.6 mg/dL (0.6-1.3); GLUCOSE 130 mg/dL (74-106); SODIUM SERUM 134 mmol/L (136-145); TOTAL PROTEIN, SERUM 6.8 g/dL (6.4-8.2); UREA NITROGEN, BLOOD 13 mg/dL (7-18)
[2022-12-09 08:00] VITALS: BP 110/67; TEMP 97.9; O2SAT 96
[2022-12-09] MEDS: LEVOTHYROXINE SODIUM 175 MCG TABLET PO SCH (08:27)
[2022-12-09] MEDS: ATORVASTATIN 10 MG TABLET PO SCH (08:27)
[2022-12-09] MEDS: ASPIRIN EC 81 MG TABLET.DR PO SCH (08:27)
[2022-12-09] MEDS: PANTOPRAZOLE 40 MG TABLET.DR PO SCH (08:27)
[2022-12-09] MEDS: oxyCODONE/APAP (5/325 MG) 1 UDTAB TABLET PO SCH ×3 (08:30→16:58)
[2022-12-09 16:00] VITALS: BP 111/55; TEMP 98.7; O2SAT 98
[2022-12-09] MEDS: ENSURE ENLIVE 237 ML LIQUID (VANILLA) PO SCH (17:52)
[2022-12-09 20:21] VITALS: BP 131/78; TEMP 98.2; O2SAT 98
[2022-12-09] MEDS: TRAZODONE 50 MG TABLET PO SCH (21:03)
[2022-12-10] MEDS: PANTOPRAZOLE 40 MG TABLET.DR PO SCH (07:55)
[2022-12-10] MEDS: LEVOTHYROXINE SODIUM 175 MCG TABLET PO SCH (07:55)
[2022-12-10 08:00] VITALS: BP 118/62; TEMP 98.2; O2SAT 97
[2022-12-10] MEDS: ATORVASTATIN 10 MG TABLET PO SCH (08:00)
[2022-12-10] MEDS: ASPIRIN EC 81 MG TABLET.DR PO SCH (08:00)
[2022-12-10] MEDS: ENSURE ENLIVE 237 ML LIQUID (VANILLA) PO SCH ×2 (08:00→17:39)
[2022-12-10] MEDS: oxyCODONE/APAP (5/325 MG) 1 UDTAB TABLET PO SCH ×3 (08:01→17:39)
[2022-12-10] MEDS: VENLAFAXINE XR 75 MG CAP.SR.24H PO SCH (09:07)
[2022-12-10 16:00] VITALS: BP 106/64; TEMP 98.8; O2SAT 98
[2022-12-10 20:00] VITALS: BP 125/72; TEMP 98.1; O2SAT 97
[2022-12-10] MEDS: TRAZODONE 50 MG TABLET PO SCH (21:14)
[2022-12-11] MEDS: PANTOPRAZOLE 40 MG TABLET.DR PO SCH (07:44)
[2022-12-11] MEDS: LEVOTHYROXINE SODIUM 175 MCG TABLET PO SCH (07:44)
[2022-12-11 08:00] VITALS: BP 119/62; TEMP 98.2; O2SAT 98
[2022-12-11] MEDS: ASPIRIN EC 81 MG TABLET.DR PO SCH (08:19)
[2022-12-11] MEDS: ATORVASTATIN 10 MG TABLET PO SCH (08:19)
[2022-12-11] MEDS: VENLAFAXINE XR 75 MG CAP.SR.24H PO SCH (08:19)
[2022-12-11] MEDS: ENSURE ENLIVE 237 ML LIQUID (VANILLA) PO SCH (08:23)
[2022-12-11] MEDS: oxyCODONE/APAP (5/325 MG) 1 UDTAB TABLET PO SCH ×2 (08:23→13:53)
== END 2022-12-11 14:57 | disposition home or self-care (01) | DRG 885 ==
LOC: ER 10:01 → GPS 16:47
PROVIDERS: ADMIT Psychiatry & Neurology Psychosomatic Medicine; ATTEND Nurse Practitioner Acute Care
DX: F33.2 Major depressive disorder, recurrent severe without psychotic features (principal); R45.851 Suicidal ideations; E03.9 Hypothyroidism, unspecified; K21.9 Gastro-esophageal reflux disease without esophagitis; F43.10 Post-traumatic stress disorder, unspecified; G31.84 Mild cognitive impairment of uncertain or unknown etiology; Z86.73 Personal history of transient ischemic attack (TIA), and cerebral infarction without residual deficits; E78.5 Hyperlipidemia, unspecified; Z85.820 Personal history of malignant melanoma of skin; G89.4 Chronic pain syndrome; Z90.49 Acquired absence of other specified parts of digestive tract; Z90.710 Acquired absence of both cervix and uterus; Z98.890 Other specified postprocedural states; Z88.1 Allergy status to other antibiotic agents; Z91.041 Radiographic dye allergy status; Z88.5 Allergy status to narcotic agent; Z91.013 Allergy to seafood; Z88.8 Allergy status to other drugs, medicaments and biological substances; Z91.018 Allergy to other foods; Z91.048 Other nonmedicinal substance allergy status; Z79.82 Long term (current) use of aspirin; Z79.890 Hormone replacement therapy; F29 Unspecified psychosis not due to a substance or known physiological condition; R53.1 Weakness; R27.8 Other lack of coordination; Z91.81 History of falling; F41.9 Anxiety disorder, unspecified; Z88.3 Allergy status to other anti-infective agents; Z88.6 Allergy status to analgesic agent; Z88.2 Allergy status to sulfonamides; F17.210 Nicotine dependence, cigarettes, uncomplicated
CPT/HCPCS: 36415; 80048-TC; 80053-TC; 80061-TC; 80076-TC; 81001; 82962-TC; 85025-TC; 87081-TC; 87086-TC; G0480